=== PATIENT | male | born 1960 | race Caucasian/White ===

== ENCOUNTER 2019-06-13 15:51 | Emergency (ER) | payer OTHER ==
[2019-06-13 16:23] VITALS: TEMP 98
[2019-06-13] MEDS ORDERED: HYDROcodone/APAP 7.5-325MG 1 EACH TAB PO ONE (16:30)
--- NOTE | 2019-06-13 16:49 | XR ---
EXAMINATION TYPE: XR hand complete RT DATE OF EXAM: 06/13/2019 COMPARISON: NONE HISTORY: Pain TECHNIQUE: 3 views FINDINGS: Metacarpals appear intact. Carpal bones are intact. I see no fracture nor dislocation. Ther e is minor spurring at the DIP joints. IMPRESSION: No acute abnormality of the right hand.
--- NOTE | 2019-06-13 16:50 | XR ---
EXAMINATION TYPE: XR wrist complete RT DATE OF EXAM: 06/13/2019 COMPARISON: NONE HISTORY: Wrist pain TECHNIQUE: 4 views FINDINGS: Carpal bones are intact. I see no fracture nor dislocation. Joint spaces are normal. IMPRESSION: Negative right wrist exam.
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
[2019-06-13] MEDS ORDERED: ACET/COD 300 MG/30 MG STARTER PACK 6 TAB BTL PO STA (17:10)
[2019-06-13 17:21] VITALS: BP 130/88; PULSE 80; RESP 16
== END 2019-06-13 17:19 | disposition home or self-care (01) ==
LOC: EC 15:51
DX: S63.501A Unspecified sprain of right wrist, initial encounter (principal); V48.5XXA Car driver injured in noncollision transport accident in traffic accident, initial encounter; Y92.410 Unspecified street and highway as the place of occurrence of the external cause; Y93.89 Activity, other specified
CPT/HCPCS: 29125; 99284

== ENCOUNTER 2021-10-16 12:57 | Observation (INO) | payer BC, OTHER ==
[2021-10-16 13:02] LABS: Glucose,Whole Blood 93 mg/dL (75-99)
[2021-10-16] MEDS ORDERED: SODIUM CHLORIDE 0.9% 1,000 ML IV STA (13:22)
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
[2021-10-16 13:30] LABS: Basophils % (A) 1 %; Eosinophils # (A) 0.1 k/uL (0-0.7); Eosinophils % (A) 1 %; HCT 46.8 % (39.0-53.0); HGB 15.7 gm/dL (13.0-17.5); Lymphocytes # (A) 1.9 k/uL (1.0-4.8); Lymphocytes % (A) 26 %; MCH 30.9 pg (25.0-35.0); MCHC 33.4 g/dL (31.0-37.0); MCV 92.5 fL (80.0-100.0); Mean Platelet Volume 8.2; Monocytes # (A) 0.4 k/uL (0-1.0); Monocytes % (A) 6 %; Neutrophils # (A) 4.7 k/uL (1.3-7.7); Neutrophils % (A) 64 %; Platelet Count 208 k/uL (150-450); RBC 5.06 m/uL (4.30-5.90); RDW 14.2 % (11.5-15.5); WBC 7.2 k/uL (3.8-10.6)
[2021-10-16 13:52] LABS: Calcium 8.9 mg/dL (8.4-10.2); Magnesium 1.6 mg/dL (1.6-2.3)
[2021-10-16 13:56] LABS: Potassium 4.6 mmol/L (3.5-5.1)
[2021-10-16] MEDS ORDERED: NALOXONE 0.4 MG/ML 1 ML VIAL IV PRN (14:52)
[2021-10-16] MEDS: SODIUM CHLORIDE 0.9% 1,000 ML IV SCH (15:55)
[2021-10-16] MEDS: amLODIPine 5 MG TAB PO SCH (18:18)
[2021-10-17] MEDS: LEVOTHYROXINE 112 MCG TAB PO SCH (05:15)
--- NOTE | 2021-10-17 10:03 | US ---
EXAMINATION TYPE: US carotid duplex BILAT DATE OF EXAM: 10/17/2021 COMPARISON: NONE CLINICAL HISTORY: presyncope. Presyncope per order. Previous smoker. Hx bradycardia. EXAM MEASUREMENTS: RIGHT: Peak Systolic Velocity (PSV) cm/sec ----- Right CCA: 53.7 ----- Right ICA: 51.1 *Bulb measurement ----- Right ECA: 77.3 ICA/CCA ratio: 1.0 RIGHT: End Diastole cm/sec ----- Right CCA: 11.9 ----- Right ICA: 10.1 *Bulb measurement ----- Right ECA: 9.2 LEFT: Peak Systolic Velocity (PSV) cm/sec ----- Left CCA: 53.1 ----- Left ICA: 43.1 ----- Left ECA: 79.0 ICA/CCA ratio: 0.8 LEFT: End Diastole cm/sec ----- Left CCA: 11.1 ----- Left ICA: 10.7 ----- Left ECA: 7.5 VERTEBRALS (direction of flow): Right Vertebral: Antegrade Left Vertebral: Antegrade Rhythm: Normal Intimal thickening seen bilaterally. No elevated velocities at this time. Hypoechoic area with hyperechoic center seen right neck: 1.3 x 1.0 x 0.3 cm. Hypoechoic area with hyperechoic center seen left neck: 2.0 x 1.4 x 0.5 cm. Incidental finding- thyroid gland appears heterogeneous bilaterally. IMPRESSION: No evidence for hemodynamically significant stenosis. Criteria for Assigning % of Stenosis / Diameter reduction (Estimation based on the indirect measurements of the internal carotid artery velocities (ICA PSV). 1. Normal (no stenosis)=ICA PSV < 125 cm/s: ratio < 2.0: ICA EDV<40 cm/s. 2. Less than 50% stenosis=ICA PSV < 125 cm/s: ratio < 2.0: ICA EDV<40 cm/s. 3. 50 to 69% stenosis=ICA PSV of 125 to 230 cm/s: ration 2.0 ? 4.0: ICA EDV 40-100 cm/s. 4. Greater than 70% stenosis to near occlusion= ICA PSV > 230 cm/s: ratio > 4.0: ICA EDV > 100 cm/s. 5. Near occlusion= ICA PSV velocities may be low or undetectable: variable ratio and ICA EDV. 6. Total occlusion=unable to detect flow.
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
[2021-10-17] MEDS: FAMOTIDINE 20 MG/2 ML VIAL IV SCH ×2 (11:32→19:59)
[2021-10-17] MEDS: amLODIPine 5 MG TAB PO SCH ×2 (11:32→13:33)
[2021-10-17] MEDS: HEPARIN SODIUM,PORCINE/PF 5,000 UNIT/0.5 ML SYRINGE SQ SCH ×2 (11:32→19:59)
[2021-10-17] MEDS: SODIUM CHLORIDE 0.9% 1,000 ML IV SCH (14:51)
[2021-10-17 15:21] VITALS: PULSE 53
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
[2021-10-18] MEDS: LEVOTHYROXINE 112 MCG TAB PO SCH (05:34)
[2021-10-18] MEDS: HEPARIN SODIUM,PORCINE/PF 5,000 UNIT/0.5 ML SYRINGE SQ SCH (07:49)
[2021-10-18] MEDS: amLODIPine 5 MG TAB PO SCH (07:54)
[2021-10-18 08:19] VITALS: BP 159/83; RESP 18; TEMP 97.9
[2021-10-18] MEDS ORDERED: FAMOTIDINE 20 MG TAB PO SCH (09:00)
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
--- NOTE | 2021-10-22 10:00 | ECHOF ---
Referral Reason:lv function MEASUREMENTS -------- HEIGHT: 167.6 cm WEIGHT: 86.2 kg BP: 159/85 RVIDd: 3.2 cm (< 3.3) IVSd: 1.2 cm (0.6 - 1.1) LVIDd: 5.2 cm (3.9 - 5.3) LVPWd: 1.2 cm (0.6 - 1.1) IVSs: 1.9 cm LVIDs: 3.6 cm LVPWs: 1.8 cm LAESV Index (A-L): 17.81 ml/m Ao Diam: 4.0 cm (2.0 - 3.7) AV Cusp: 1.6 cm (1.5 - 2.6) MV EXCURSION: 12.842 mm (> 18.000) MV EF SLOPE: 59 mm/s (70 - 150) EPSS: 1.0 cm AR PHT: 700 ms RAP: 5.00 mmHg RVSP: 25.57 mmHg FINDINGS -------- Resting bradycardia (HR<60bpm). This was a technically adequate study. The left ventricular size is normal. There is mild concentric left ventricular hypertrophy. Overa ll left ventricular systolic function is normal with, an EF between 55 - 60 %. The right ventricle is normal in size. Normal LA size by volume 22+/-6 ml/m2. The right atrial size is normal. Interatrial and interventricular septum intact. The aortic valve is trileaflet and appears structurally normal. There is [id number]-vl-[id number] aortic re gurgitation. There is no evidence of aortic stenosis. No mitral regurgitation. Trace tricuspid regurgitation present. There is no evidence of pulmonary hypertension. Unable to estimate RVSP due to inadequate TR jet spectral doppler profile. There is no pulmonic regurgitation present. The aortic root and ascending aorta are dilated measuring up to (4.2 ) cm. Echo free space represents a pericardial fat pad. There is no pericardial effusion. CONCLUSIONS -------- 1. The left ventricular size is normal. 2. There is mild concentric left ventricular hypertrophy. 3. Overall left ventricular systolic function is normal with, an EF between 55 - 60 %. 4. There is bjts-bv-nffbzuns aortic regurgitation. 5. Trace tricuspid regurgitation present. 6. The aortic root and ascending aorta are dilated measuring up to (4.2) cm. [employer] FIELD AGENT: Leslie Rosales RDCS
== END 2021-10-18 14:03 | disposition home or self-care (01) ==
LOC: EC 12:57 → 6NMEDSUR 14:54
PROVIDERS: ADMIT Hospitalist; ATTEND Hospitalist
DX: R00.1 Bradycardia, unspecified (principal); I10 Essential (primary) hypertension; I45.2 Bifascicular block; I44.0 Atrioventricular block, first degree; E03.9 Hypothyroidism, unspecified; R22.1 Localized swelling, mass and lump, neck; E66.9 Obesity, unspecified; Z68.30 Body mass index [BMI] 30.0-30.9, adult; Z71.3 Dietary counseling and surveillance; V43.52XA Car driver injured in collision with other type car in traffic accident, initial encounter; Y92.410 Unspecified street and highway as the place of occurrence of the external cause; Z79.890 Hormone replacement therapy; Z87.891 Personal history of nicotine dependence
CPT/HCPCS: 96360; 99285; 36415; 93005; 93306; 93270; 80048; 84443; 83735; 84484; 85025; 93880; G0378 ×3

== ENCOUNTER 2023-06-17 23:14 | Emergency (ER) | payer BC ==
[2023-06-17 23:40] VITALS: RESP 18; TEMP 98.7
[2023-06-17] MEDS ORDERED: SODIUM CHLORIDE 0.9% 1,000 ML IV STA (23:48)
[2023-06-18 00:06] LABS: Basophils % (A) 1 %; Eosinophils # (A) 0.1 k/uL (0-0.7); Eosinophils % (A) 2 %; HCT 44.9 % (39.0-53.0); HGB 14.8 gm/dL (13.0-17.5); Lymphocytes # (A) 2.2 k/uL (1.0-4.8); Lymphocytes % (A) 31 %; MCH 29.3 pg (25.0-35.0); MCHC 32.9 g/dL (31.0-37.0); MCV 89.1 fL (80.0-100.0); Mean Platelet Volume 7.7; Monocytes # (A) 0.3 k/uL (0-1.0); Monocytes % (A) 5 %; Neutrophils # (A) 4.3 k/uL (1.3-7.7); Neutrophils % (A) 60 %; Platelet Count 248 k/uL (150-450); RBC 5.04 m/uL (4.30-5.90); RDW 13.7 % (11.5-15.5); WBC 7.1 k/uL (3.8-10.6)
[2023-06-18 00:11] LABS: INR 0.9 (<1.2); Partial Thromboplastin Time 27.3 sec (22.0-30.0); Prothrombin Time 10.5 sec (10.0-12.5)
--- NOTE | 2023-06-18 01:25 | XR ---
EXAM: XR Chest, 2 Views CLINICAL HISTORY: ITS.REASON XR Reason: dysrhythmia TECHNIQUE: Frontal and lateral views of the chest. COMPARISON: No relevant prior studies available. FINDINGS: Lungs: Unremarkable. No consolidation. Pleural space: Unremarkable. No pneumothorax. Heart: Unremarkable. No cardiomegaly. Mediastinum: Unremarkable. Bones/joints: Unremarkable. Tubes, lines and devices: Left chest wall pacemaker device with leads in the right atrium and right ventricle. IMPRESSION: No acute findings in the chest.
[2023-06-18 01:32] LABS: ALT 22 U/L (4-49); AST 31 U/L (17-59); African American GFR (CKD) 87 (>60 ml/min/1.73 sqM); Albumin 3.9 g/dL (3.5-5.0); Alkaline Phosphatase 52 U/L (38-126); Anion Gap 11 mmol/L; Blood Urea Nitrogen 17 mg/dL (9-20); Calcium 9.6 mg/dL (8.4-10.2); Carbon Dioxide 22 mmol/L (22-30); Chloride 107 mmol/L (98-107); Glucose 102 mg/dL (74-99); Magnesium 1.9 mg/dL (1.6-2.3); Non-African American GFR(CKD) 75 (>60 ml/min/1.73 sqM); Potassium 3.7 mmol/L (3.5-5.1); Sodium 140 mmol/L (137-145); Total Bilirubin 0.3 mg/dL (0.2-1.3); Total Protein 6.4 g/dL (6.3-8.2)
--- NOTE | 2023-06-18 01:40 | ED ---
Arrhythmia/Palpitations HPI - General Chief Complaint: Dizziness Stated Complaint: lightheadedness/flushed Time Seen by Provider: 06/17/23 23:27 Source: patient Mode of arrival: ambulatory Limitations: no limitations - History of Present Illness Initial Comments: 63-year-old male presenting with chief complaint of lightheadedness. 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 He states that he took a short break until his symptoms somewhat improved and resumed work he was doing when his symptoms returned. States that he couldn't feel his face getting red and hot and suspected that his blood press ure was elevated as this is how he has felt the past when his blood pressure was elevated. He states that symptoms have essentially completely resolved. He denies any chest pain, difficulty breathing, palpitations, numbness, tingling, weakness, nausea, vomiting, abdominal pain, vision or hearing changes, headache, neck pain, lower extremity swelling. Patient feels well at this time. Patient does have a pacemaker in place due to left and right bundle-branch block - Related Data Home Medications Medication Instructions Recorded Confirmed Levothyroxine Sodium [Synthroid] 112 mcg PO DAILY 10/16/21 10/16/21 Previous Rx's Medication Instructions Recorded amLODIPine [Norvasc] 5 mg PO DAILY #30 tab 10/18/21 Allergies Allergy/AdvReac Type Severity Reaction Status Date / Time No Known Allergies Allergy Verified 06/17/23 23:19 Review of Systems ROS Statement: Those systems with pertinent positive or pertinent negative responses have been documented in the HPI. ROS Other: All systems not noted in ROS Statement are negative. Past Medical History Past Medical History: Thyroid Disorder History of Any Multi-Drug Resistant Organisms: None Reported Past Surgical History: Hernia Repair, Pacemaker Past Anesthesia/Blood Transfusion Reactions: No Reported Reaction Past Psychological History: No Psychological Hx Reported Smoking Status: Former smoker Past Alcohol Use History: Daily Past Drug Use History: None Reported General Exam Limitations: no limitations General appearance: alert, in no apparent distress Head exam: Present: atraumatic, normocephalic, normal inspection Eye exam: Present: normal appearance, EOMI Neck exam: Present: normal inspection, full ROM Respiratory exam: Present: normal lung sounds bilaterally. Absent: respiratory distress, wheezes, rales, rhonchi, stridor Cardiovascular Exam: Present: regular rate, normal rhythm, normal heart sounds. Absent: systolic murmur, diastolic murmur, rubs, gallop, clicks Extremities exam: Absent: pedal edema Neurological exam: Present: alert, oriented X3 Expanded Patient oriented to: Present: person, place, time Speech: Present: fluid speech Cranial nerves: EOM's Intact: Normal Eye Response: (4) open spontaneously Motor Response: (6) obeys commands Verbal Response: (5) oriented [place] Total: 15 Psychiatric exam: Present: normal affect, normal mood Skin exam: Present: warm, dry, normal color Course Vital Signs 06/17/23 06/17/23 06/18/23 23:17 23:19 00:19 Temperature 98.7 F Pulse Rate 90 73 70 Respiratory 18 18 18 Rate Blood Pressure 141/84 135/74 141/77 O2 Sat by Pulse 95 99 98 Oximetry 06/18/23 01:19 Temperature Pulse Rate 61 Respiratory 18 Rate Blood Pressure 116/67 O2 Sat by Pulse 98 Oximetry Medical Decision Making - Medical Decision Making Electronic ventricular pacemaker. Ventricular rate 80. IA interval 184. QRS 201. QT 458. QTC 493. Was pt. sent in by a medical professional or institution (, PA, [employer], urgent care, hospital, or long term...) When possible be specific @ -No Did you speak to anyone other than the patient for history (EMS, parent, family, police, friend...)? What history was obtained from this source @ -No Did you review nursing and triage notes (agree or disagree)? Why? @ -I reviewed and agree with nursing and triage notes Were old charts reviewed (outside hosp., previous admission, EMS record, old EKG, old radiological studies, urgent care reports/EKG's, long term records)? Report findings @ -No old charts were reviewed Differential Diagnosis (chest pain, altered mental status, abdominal pain women, abdominal pain men, vaginal bleeding, weakness, fever, dyspnea, syncope, heada med, dizziness, GI bleed, back pain, seizure, CVA, palpatations, mental health, musculoskeletal)? @ -MDM Differential Dizziness: Benign paroxysmal positional Vertigo, Menieres disease, otitis media, acoustic neuroma, vertebrobasilar insufficiency, cerebellar stroke, encephali tis, hypovolemic, arrhythmia, coronary artery syndrome, anemia this is not meant to be an all-inclusive list EKG interpreted by me (3pts min.). @ -As above X-rays interpreted by me (1pt min.). @ -Chest x-ray shows no acute process CT interpreted by me (1pt min.). @ -None done U/S interpreted by me (1pt. min.). @ -None done What testing was considered but not performed or refused? (CT, X-rays, U/S, labs)? Why? @ -None What meds were considered but not given or refused? Why? @ -None Did you discuss the management of the patient with other professionals (professionals i.e. DrHeather, PA, [employer], lab, RT, psych nurse, social insurance specialist, core maker helper, teacher, ground intelligence officer, major case detective)? Give summary @ -No Was smoking cessation discussed for >3mins.? @ -No Was critical care preformed (if so, how long)? @ -No Were there social determinants of health that impacted care today? How? (Homelessness, low income, unemployed, alcoholism, drug addiction, transportation, low edu. Level, literacy, decrease access to med. care, custodial, rehab)? @ -No Was there de-escalation of care discussed even if they declined (Discuss DNR or withdrawal of care, Hospice)? DNR status @ -No What co-morbidities impacted this encounter? (DM, HTN, Smoking, COPD, CAD, Cancer, CVA, ARF, Chemo, Hep., AIDS, mental health diagnosis, sleep apnea, morbid obesity)? @ -None Was patient admitted / discharged? Hospital course, mention meds given and route, prescriptions, significant lab abnormalities, going to OR and other pertinent info. @ -63-year-old male presenting with chief complaint of lightheadedness and flushed face after moving heavy barrels at work this evening. Symptoms have since resolved. No chest pain or difficulty breathing. History and physical exam were conducted. Lab work is essentially unremarkable. Negative chest x- ray. The EKG shows electronic ventricular pacemaker. Patient is resting comfortably and symptoms have not returned. Patient would like to be discharged home and I believe this is reasonable. He is educated on today's findings and the need for follow-up with PCP. Follow-up with PCP. Report back to ER with any new or worsening symptoms. Discussed return parameters and answered all questions. Patient conveyed verbal understanding and agreed to the plan. I discussed this case in detail with my attending Dr. Walton Undiagnosed new problem with uncertain prognosis? @ -No Drug Therapy requiring intensive monitoring for toxicity (Heparin, Nitro, Insulin, Cardizem)? @ -No Were any procedures done? @ -No Diagnosis/symptom? @ -lightheadedness Acute, or Chronic, or Acute on Chronic? @ -Acute Uncomplicated (without systemic symptoms) or Complicated (systemic symptoms)? @ -Uncomplicated Side effects of treatment? @ -No Exacerbation, Progression, or Severe Exacerbation? @ -No Poses a threat to life or bodily function? How? (Chest pain, USA, MS, pneumonia, PE, COPD, DKA, ARF, appy, cholecystitis, CVA, Diverticulitis, Homicidal, Suicidal, threat to staff... and all critical care pts) @ -Low Likelihood - Lab Data Result diagrams: 06/17/23 23:51 06/17/23 23:51 Lab Results 06/17/23 06/17/23 06/17/23 Range/Units 23:51 23:51 23:51 WBC 7.1 (3.8-10.6) k/uL RBC 5.04 (4.30-5.90) m/uL Hgb 14.8 (13.0-17.5) gm/dL Hct 44.9 (39.0-53.0) % MCV 89.1 (80.0-100.0) fL MCH 29.3 (25.0-35.0) pg MCHC 32.9 (31.0-37.0) g/dL RDW 13.7 (11.5-15.5) % Plt Count 248 (150-450) k/uL MPV 7.7 Neutrophils % 60 % Lymphocytes % 31 % Monocytes % 5 % Eosinophils % 2 % Basophils % 1 % Neutrophils # 4.3 (1.3-7.7) k/uL Lymphocytes # 2.2 (1.0-4.8) k/uL Monocytes # 0.3 (0-1.0) k/uL Eosinophils # 0.1 (0-0.7) k/uL Basophils # 0.0 (0-0.2) k/uL PT 10.5 (10.0-12.5) sec INR 0.9 (<1.2) APTT 27.3 (22.0-30.0) sec Sodium 140 (137-145) mmol/L Potassium 3.7 (3.5-5.1) mmol/L Chloride 107 (98-107) mmol/L Carbon Dioxide 22 (22-30) mmol/L Anion Gap 11 mmol/L BUN 17 (9-20) mg/dL Creatinine 1.05 (0.66-1.25) mg/dL Est GFR (CKD-EPI)AfAm 87 (>60 ml/min/1.73 sqM) Est GFR (CKD-EPI)NonAf 75 (>60 ml/min/1.73 sqM) Glucose 102 H (74-99) mg/dL Calcium 9.6 (8.4-10.2) mg/dL Magnesium 1.9 (1.6-2.3) mg/dL Total Bilirubin 0.3 (0.2-1.3) mg/dL AST 31 (17-59) U/L ALT 22 (4-49) U/L Alkaline Phosphatase 52 (38-126) U/L Troponin I (0.000-0.034) ng/mL Total Protein 6.4 (6.3-8.2) g/dL Albumin 3.9 (3.5-5.0) g/dL 06/17/23 Range/Units 23:51 WBC (3.8-10.6) k/uL RBC (4.30-5.90) m/uL Hgb (13.0-17.5) gm/dL Hct (39.0-53.0) % MCV (80.0-100.0) fL MCH (25.0-35.0) pg MCHC (31.0-37.0) g/dL RDW (11.5-15.5) % Plt Count (150-450) k/uL MPV Neutrophils % % Lymphocytes % % Monocytes % % Eosinophils % % Basophils % % Neutrophils # (1.3-7.7) k/uL Lymphocytes # (1.0-4.8) k/uL Monocytes # (0-1.0) k/uL Eosinophils # (0-0.7) k/uL Basophils # (0-0.2) k/uL PT (10.0-12.5) sec INR (<1.2) APTT (22.0-30.0) sec Sodium (137-145) mmol/L Potassium (3.5-5.1) mmol/L Chloride (98-107) mmol/L Carbon Dioxide (22-30) mmol/L Anion Gap mmol/L BUN (9-20) mg/dL Creatinine (0.66-1.25) mg/dL Est GFR (CKD-EPI)AfAm (>60 ml/min/1.73 sqM) Est GFR (CKD-EPI)NonAf (>60 ml/min/1.73 sqM) Glucose (74-99) mg/dL Calcium (8.4-10.2) mg/dL Magnesium (1.6-2.3) mg/dL Total Bilirubin (0.2-1.3) mg/dL AST (17-59) U/L ALT (4-49) U/L Alkaline Phosphatase (38-126) U/L Troponin I <0.012 (0.000-0.034) ng/mL Total Protein (6.3-8.2) g/dL Albumin (3.5-5.0) g/dL Disposition Clinical Impression: Lightheadedness Disposition: HOME SELF-CARE Condition: Good Instructions (If sedation given, give patient instructions): Lightheadedness (ED) Additional Instructions: Follow-up with PCP. Report back to ER with any new or worsening symptoms. Is patient prescribed a controlled substance at d/c from ED?: No Referrals: Liz Brewster MD [Primary Care Provider] - 1-2 days Time of Disposition: 01:40
[2023-06-18 01:55] VITALS: BP 116/67; PULSE 61
== END 2023-06-18 01:53 | disposition home or self-care (01) ==
LOC: EC 23:14
DX: R42 Dizziness and giddiness (principal); E07.9 Disorder of thyroid, unspecified; I45.10 Unspecified right bundle-branch block; Z87.891 Personal history of nicotine dependence; Z79.890 Hormone replacement therapy
CPT/HCPCS: 36415; 71046; 80053; 83735; 84484; 85025; 85610; 85730; 93005; 96360; 99284

== ENCOUNTER 2023-09-24 12:57 | Emergency (ER) | payer BC ==
--- NOTE | 2023-09-24 13:14 | ED ---
General Adult HPI - General Source: patient, RN notes reviewed Mode of arrival: ambulatory Limitations: no limitations <Angela Murcia - Last Filed: 09/26/23 06:32> - General Source: RN notes reviewed, old records reviewed Mode of arrival: ambulatory Limitations: no limitations - History of Present Illness -: days(s) Location: chest Radiation: non-radiation Severity scale (1-10): 6 Quality: sharp Consistency: constant Improves with: none, immobilization Associated Symptoms: chest pain Treatments Prior to Arrival: none <Brayan Walton - Last Filed: 10/03/23 18:43> - General Chief complaint: Chest Pain Stated complaint: Cardiac eval Time Seen by Provider: 09/24/23 13:11 - History of Present Illness Initial comments: This is a 63 year old male who presents to the emergency department for chest pain. Chest pain started 5-7 days ago. This is primarily left sided. He believes that he pulled a muscle, however his PCP advised he come to the emergency department for evaluation. Reports a hx of LBBB and he has a pacemaker. (Angela Murcia) This is a 63-year-old male to ER for chest pain 5 to 7 days of chest pain thought it was a pulled muscle but was brought to the ER as his PCP told him to come in for evaluation of chest pain (Brayan Walton) - Related Data Home Medications Medication Instructions Recorded Confirmed Levothyroxine Sodium [Synthroid] 112 mcg PO DAILY 10/16/21 10/16/21 Previous Rx's Medication Instructions Recorded amLODIPine [Norvasc] 5 mg PO DAILY #30 tab 10/18/21 Allergies Allergy/AdvReac Type Severity Reaction Status Date / Time No Known Allergies Allergy Verified 09/24/23 13:16 Review of Systems ROS Other: All systems not noted in ROS Statement are negative. <Angela Murcia - Last Filed: 09/26/23 06:32> ROS Other: All systems not noted in ROS Statement are negative. <Brayan Walton - Last Filed: 10/03/23 18:43> ROS Statement: Those systems with pertinent positive or pertinent negative responses have been documented in the HPI. Past Medical History Past Medical History: Thyroid Disorder History of Any Multi-Drug Resistant Organisms: None Reported Past Surgical History: Hernia Repair, Pacemaker Past Anesthesia/Blood Transfusion Reactions: No Reported Reaction Past Psychological History: No Psychological Hx Reported Smoking Status: Former smoker Past Alcohol Use History: Daily Past Drug Use History: None Reported <Angela Murcia - Last Filed: 09/26/23 06:32> General Exam <Angela Murcia - Last Filed: 09/26/23 06:32> General appearance: alert, in no apparent distress Head exam: Present: atraumatic, normocephalic, normal inspection Eye exam: Present: normal appearance, PERRL, EOMI. Absent: scleral icterus, conjunctival injection, periorbital swelling ENT exam: Present: normal exam, mucous membranes moist Neck exam: Present: normal inspection. Absent: tenderness, meningismus, lymphadenopathy Respiratory exam: Present: normal lung sounds bilaterally. Absent: respiratory distress, wheezes, rales, rhonchi, stridor Cardiovascular Exam: Present: regular rate, normal rhythm, normal heart sounds. Absent: systolic murmur, diastolic murmur, rubs, gallop, clicks GI/Abdominal exam: Present: soft, normal bowel sounds. Absent: distended, t enderness, guarding, rebound, rigid Extremities exam: Present: normal inspection, full ROM, normal capillary refill. Absent: tenderness, pedal edema, joint swelling, calf tenderness Back exam: Present: normal inspection Neurological exam: Present: alert, oriented X3, CN II-XII intact Psychiatric exam: Present: normal affect, normal mood Skin exam: Present: warm, dry, intact, normal color. Absent: rash <Brayan Walton - Last Filed: 10/03/23 18:43> - General Exam Comments Initial Comments: Visual Physical Exam Vital signs reviewed General: Well-appearing, nontoxic, no acute distress. Head: Normocephalic, atraumatic Eyes: PERRLA, EOMI ENT: Airway patent Chest: Nonlabored breathing Skin: No visual rash, normal skin tone Neuro: Alert and oriented 3 Musculoskeletal: No gross abnormalities (Angela Murcia) Course <Brayan Walton - Last Filed: 10/03/23 18:43> Vital Signs 09/24/23 13:13 Temperature 98.4 F Pulse Rate 63 Respiratory 20 Rate Blood Pressure 135/82 O2 Sat by Pulse 98 Oximetry - Reevaluation(s) Reevaluation #1: Medical records reviewed (Brayan Walton) Reevaluation #2: Patient symptoms unchanged (Brayan Walton) Reevaluation #3: Patient informed of results and questions answered (Brayan Walton) Reevaluation #4: Was pt. sent in by a medical professional or institution (, ANNAMARIA, PERSONNEL WORKER, urgent care, hospital, or fdc...) When possible be specific @ -no Did you speak to anyone other than the patient for history (EMS, parent, family, police, friend...)? What history was obtained from this source @ -no Did you review nursing and triage notes (agree or disagree)? Why? @ -agree Are old charts reviewed (outside hosp., previous admission, EMS record, old EKG, old radiological studies, urgent care reports/EKG's, fdc records)? Report findings @ -yes Differential Diagnosis (chest pain, altered mental status, abdominal pain women, abdominal pain men, vaginal bleeding, weakness, fever, dyspnea, syncope, headache, dizziness, GI bleed, back pain, seizure, CVA, palpatations, mental health, musculoskeletal)? @ -prior EKG interpreted by me (3pts min.). @ -yes X-rays interpreted by me (1pt min.). @ -yes negative for acute disease CT interpreted by me (1pt min.). @ -no U/S interpreted by me (1pt. min.). @ -no What testing was considered but not performed or refused? (CT, X-rays, U/S, labs)? Why? @ -none What meds were considered but not given or refused? Why? @ -none Did you discuss the management of the patient with other professionals (professionals i.e. , ANNAMARIA, PERSONNEL WORKER, lab, RT, psych nurse, social insurance administrator, manuscript editor, teacher, military police officer, shoe caser)? Give summary @ -no Was smoking cessation discussed for >3mins.? @ -no Was critical care preformed (if so, how long)? @ -no Were there social determinants of health that impacted care today? How? (Homelessness, low income, unemployed, alcoholism, drug addiction, transportation, low edu. Level, literacy, decrease access to med. care, correction, rehab)? @ -none Was there de-escalation of care discussed even if they declined (Discuss DNR or withdrawal of care, Hospice)? DNR status @ -no What co-morbidities impacted this encounter? (DM, HTN, Smoking, COPD, CAD, Cancer, CVA, ARF, Chemo, Hep., AIDS, mental health diagnosis, sleep apnea, morbid obesity)? @ -none Was patient admitted / discharged? Hospital course, mention meds given and route, prescriptions, significant lab abnormalities, going to OR and other pertinent info. @ - 63 male with nonspecific chest pain. No acute cause of chest pain found here in the ER and can be discharged home Discharge Undiagnosed new problem with uncertain prognosis? @ -no Drug Therapy requiring intensive monitoring for toxicity (Heparin, Nitro, Insu sara, Cardizem)? @ -no Were any procedures done? @ -no Diagnosis/symptom? @ -Chest pain Acute, or Chronic, or Acute on Chronic? @ -Acute Uncomplicated (without systemic symptoms) or Complicated (systemic symptoms)? @ -Complicated Side effects of treatment? @ -no Exacerbation, Progression, or Severe Exacerbation? @ -exacerbation Poses a threat to life or bodily function? How? (Chest pain, [place], [place], pneumonia, PE, COPD, DKA, ARF, appy, cholecystitis, CVA, Diverticulitis, Homicidal, Suicidal, threat to staff... and all critical care pts) @ -yes with acute chest pain (Brayan Walton) Reevaluation #5: Differential Chest Pain: Stable Angina, Unstable Angina, STEMI, NSTEMI Aortic Dissection, Pneumothorax, Musculoskeletal, Esophageal Spasm GERD, Cholecystitis, Pancreatitis, Zoster, this is not meant to be an all-inclusive list. (Brayan Walton) EKG Findings - EKG Comments: EKG Findings:: EKG is paced 60 [address] 172 QRS 181 QTc 363 - EKG Results: EKG: interpreted by ERMD <Brayan Walton - Last Filed: 10/03/23 18:43> Medical Decision Making - Lab Data Result diagrams: 09/24/23 14:15 09/24/23 14:15 <Angela Murcia - Last Filed: 09/26/23 06:32> - Lab Data Result diagrams: 09/24/23 14:15 09/24/23 14:15 - EKG Data -: EKG Interpreted by Me - Radiology Data Radiology results: report reviewed, image reviewed <Brayan Walton - Last Filed: 10/03/23 18:43> - Medical Decision Making I performed the QuickNote portion of this chart. Signed Angela Murcia PA-C. (Angela Murcia) 63 male with nonspecific chest pain. No acute cause of chest pain found here in the ER and can be discharged home (Brayan Walton) - Lab Data Lab Results 09/24/23 09/24/23 09/24/23 Range/Units 14:15 14:15 14:15 WBC 4.6 (3.8-10.6) k/uL RBC 5.14 (4.30-5.90) m/uL Hgb 15.3 (13.0-17.5) gm/dL Hct 46.4 (39.0-53.0) % MCV 90.3 (80.0-100.0) fL MCH 29.8 (25.0-35.0) pg MCHC 33.0 (31.0-37.0) g/dL RDW 14.4 (11.5-15.5) % Plt Count 208 (150-450) k/uL MPV 7.9 Neutrophils % 57 % Lymphocytes % 32 % Monocytes % 5 % Eosinophils % 3 % Basophils % 1 % Neutrophils # 2.6 (1.3-7.7) k/uL Lymphocytes # 1.5 (1.0-4.8) k/uL Monocytes # 0.2 (0-1.0) k/uL Eosinophils # 0.2 (0-0.7) k/uL Basophils # 0.0 (0-0.2) k/uL PT 10.3 (10.0-12.5) sec INR 0.9 (<1.2) APTT 26.6 (22.0-30.0) sec Sodium 140 (137-145) mmol/L Potassium 4.4 (3.5-5.1) mmol/L Chloride 109 H (98-107) mmol/L Carbon Dioxide 25 (22-30) mmol/L Anion Gap 6 mmol/L BUN 14 (9-20) mg/dL Creatinine 0.86 (0.66-1.25) mg/dL Est GFR (CKD-EPI)AfAm >90 (>60 ml/min/1.73 sqM) Est GFR (CKD-EPI)NonAf >90 (>60 ml/min/1.73 sqM) Glucose 96 (74-99) mg/dL Calcium 9.3 (8.4-10.2) mg/dL Magnesium 2.2 (1.6-2.3) mg/dL Total Bilirubin 0.5 (0.2-1.3) mg/dL AST 37 (17-59) U/L ALT 30 (4-49) U/L Alkaline Phosphatase 61 (38-126) U/L Troponin I (0.000-0.034) ng/mL Total Protein 6.7 (6.3-8.2) g/dL Albumin 4.3 (3.5-5.0) g/dL 09/24/23 Range/Units 14:15 WBC (3.8-10.6) k/uL RBC (4.30-5.90) m/uL Hgb (13.0-17.5) gm/dL Hct (39.0-53.0) % MCV (80.0-100.0) fL MCH (25.0-35.0) pg MCHC (31.0-37.0) g/dL RDW (11.5-15.5) % Plt Count (150-450) k/uL MPV Neutrophils % % Lymphocytes % % Monocytes % % Eosinophils % % Basophils % % Neutrophils # (1.3-7.7) k/uL Lymphocytes # (1.0-4.8) k/uL Monocytes # (0-1.0) k/uL Eosinophils # (0-0.7) k/uL Basophils # (0-0.2) k/uL PT (10.0-12.5) sec INR (<1.2) APTT (22.0-30.0) sec Sodium (137-145) mmol/L Potassium (3.5-5.1) mmol/L Chloride (98-107) mmol/L Carbon Dioxide (22-30) mmol/L Anion Gap mmol/L BUN (9-20) mg/dL Creatinine (0.66-1.25) mg/dL Est GFR (CKD-EPI)AfAm (>60 ml/min/1.73 sqM) Est GFR (CKD-EPI)NonAf (>60 ml/min/1.73 sqM) Glucose (74-99) mg/dL Calcium (8.4-10.2) mg/dL Magnesium (1.6-2.3) mg/dL Total Bilirubin (0.2-1.3) mg/dL AST (17-59) U/L ALT (4-49) U/L Alkaline Phosphatase (38-126) U/L Troponin I <0.012 (0.000-0.034) ng/mL Total Protein (6.3-8.2) g/dL Albumin (3.5-5.0) g/dL Disposition Is patient prescribed a controlled substance at d/c from ED?: No <Angela Murcia - Last Filed: 09/26/23 06:32> Is patient prescribed a controlled substance at d/c from ED?: No Time of Disposition: 15:50 <Brayan Walton - Last Filed: 10/03/23 18:43> Clinical Impression: Chest pain, Atypical chest pain Disposition: HOME SELF-CARE Condition: Good Instructions (If sedation given, give patient instructions): Chest Pain (ED), Costochondritis (ED) Referrals: Liz Brewster MD [Primary Care Provider] - 1-2 days
[2023-09-24 13:33] VITALS: BP 135/82; PULSE 63; RESP 20; TEMP 98.4
--- NOTE | 2023-09-24 13:34 | XR ---
EXAMINATION TYPE: XR chest 2V DATE OF EXAM: 09/24/2023 COMPARISON: 06/17/2023. HISTORY: Chest pain. TECHNIQUE: Frontal and lateral views of the chest are obtained. FINDINGS: There is no focal air space opacity, pleural effusion, or pneumothorax seen. The cardiac silhouette size is within normal limits. The osseous structures are intact. Left-sided 2-lead pacem steve is unchanged. IMPRESSION: No acute cardiopulmonary process.
[2023-09-24 14:30] LABS: Basophils % (A) 1 %; Eosinophils # (A) 0.2 k/uL (0-0.7); Eosinophils % (A) 3 %; HCT 46.4 % (39.0-53.0); HGB 15.3 gm/dL (13.0-17.5); Lymphocytes # (A) 1.5 k/uL (1.0-4.8); Lymphocytes % (A) 32 %; MCH 29.8 pg (25.0-35.0); MCV 90.3 fL (80.0-100.0); Mean Platelet Volume 7.9; Monocytes # (A) 0.2 k/uL (0-1.0); Monocytes % (A) 5 %; Neutrophils # (A) 2.6 k/uL (1.3-7.7); Neutrophils % (A) 57 %; Platelet Count 208 k/uL (150-450); RBC 5.14 m/uL (4.30-5.90); RDW 14.4 % (11.5-15.5); WBC 4.6 k/uL (3.8-10.6)
[2023-09-24 14:40] LABS: INR 0.9 (<1.2); Partial Thromboplastin Time 26.6 sec (22.0-30.0); Prothrombin Time 10.3 sec (10.0-12.5)
[2023-09-24 14:56] LABS: ALT 30 U/L (4-49); AST 37 U/L (17-59); African American GFR (CKD) >90 (>60 ml/min/1.73 sqM); Albumin 4.3 g/dL (3.5-5.0); Alkaline Phosphatase 61 U/L (38-126); Anion Gap 6 mmol/L; Blood Urea Nitrogen 14 mg/dL (9-20); Calcium 9.3 mg/dL (8.4-10.2); Carbon Dioxide 25 mmol/L (22-30); Chloride 109 mmol/L (98-107); Glucose 96 mg/dL (74-99); Magnesium 2.2 mg/dL (1.6-2.3); Non-African American GFR(CKD) >90 (>60 ml/min/1.73 sqM); Potassium 4.4 mmol/L (3.5-5.1); Sodium 140 mmol/L (137-145); Total Bilirubin 0.5 mg/dL (0.2-1.3); Total Protein 6.7 g/dL (6.3-8.2)
== END 2023-09-24 16:19 | disposition home or self-care (01) ==
LOC: EC 12:57
DX: R07.89 Other chest pain (principal); E07.9 Disorder of thyroid, unspecified; Z79.890 Hormone replacement therapy; Z87.891 Personal history of nicotine dependence; Z95.0 Presence of cardiac pacemaker
CPT/HCPCS: 36415; 71046; 80053; 83735; 84484; 85025; 85610; 85730; 93005; 99285

== ENCOUNTER → 2023-10-01 | Outpatient (CLI) | payer BC ==
--- NOTE | 2023-10-01 12:59 | CT ---
EXAMINATION TYPE: CT angio chest DATE OF EXAM: 10/01/2023 12:48 PM COMPARISON: None HISTORY: thoracic aneurysm CT DLP: 781.6 mGycm Automated exposure control for dose reduction was used. CONTRAST: CTA scan of the thorax is performed without and with IV Contrast, patient injected with 100 mL of Iso gail 370, pulmonary embolism protocol. 3-D postprocessing was performed. FINDINGS: There are 2-3 tiny 1 to 2 mm subpleural parenchymal nodules in the left lung. No suspicious lung mass or nodule is seen. There is no abnormal airspace/consolidative density or abnormal interstitial density. There is no pleural effusion, pleural thickening or pneumothorax. There is marked aneurysmal dilatati on of the ascending thoracic aorta. The aortic root measures 5.4 cm. The ascending thoracic aorta is 5.1 x 5.3 cm in size. There is no mediastinal, hilar or axillary adenopathy. Limited scanning through the upper abdomen reveals no gross abnormality. The osseous structures are intact. IMPRESSION: 1. Marked aneurysmal dilatation of ascending thoracic aorta as described above. 2. Few scattered tiny 1 to 2 mm subpleural parenchymal nodules in the left lung. BI-RADS Category 2. Benign. This is a risk patient for routine screening at yearly intervals recommended. 3. No acute cardiopulmonary disease.
== END | disposition home or self-care (01) ==
LOC: RADCTMAIN 12:07
PROVIDERS: ATTEND Internal Medicine Clinical Cardiac Electrophysiology
DX: I71.21 Aneurysm of the ascending aorta, without rupture (principal); R91.8 Other nonspecific abnormal finding of lung field
CPT/HCPCS: 71275; Q9967

== ENCOUNTER 2023-10-22 09:53 | Emergency (ER) | payer BC ==
--- NOTE | 2023-10-22 10:02 | ED ---
Male Urogenital HPI - General Chief complaint: Urogenital Stated complaint: Blader obstruction Time Seen by Provider: 10/22/23 10:01 Source: patient, RN notes reviewed Mode of arrival: ambulatory Limitations: no limitations - History of Present Illness Initial comments: 63-year-old male presents emergency department chief complaint being unable to void. 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 States that his last time he was able to incompletely void was at 4 AM this morning. Patient denies any chest pain, headaches, palpitations, fevers, diarrhea, constipation. He endorses suprapubic tenderness. Patient denies history of kidney stones or urinary tract infections, before this event he denies hematuria, dysuria. Reports history of enlarged prostate and sits with urology every 6 months with his last appointment in May 2023, denies previous prosta te surgery. - Related Data Home Medications Medication Instructions Recorded Confirmed Levothyroxine Sodium [Synthroid] 112 mcg PO DAILY 10/16/21 10/16/21 Previous Rx's Medication Instructions Recorded amLODIPine [Norvasc] 5 mg PO DAILY #30 tab 10/18/21 Allergies Allergy/AdvReac Type Severity Reaction Status Date / Time No Known Allergies Allergy Verified 10/22/23 10:00 Review of Systems ROS Statement: Those systems with pertinent positive or pertinent negative responses have been documented in the HPI. ROS Other: All systems not noted in ROS Statement are negative. Past Medical History Past Medical History: Thyroid Disorder History of Any Multi-Drug Resistant Organisms: None Reported Past Surgical History: Hernia Repair, Pacemaker Past Anesthesia/Blood Transfusion Reactions: No Reported Reaction Past Psychological History: No Psychological Hx Reported Smoking Status: Former smoker Past Alcohol Use History: Daily Past Drug Use History: None Reported General Exam Limitations: no limitations General appearance: alert, in no apparent distress Head exam: Present: atraumatic, normocephalic, normal inspection Eye exam: Present: normal appearance, PERRL, EOMI. Absent: scleral icterus, conjunctival injection, periorbital swelling ENT exam: Present: normal exam, mucous membranes moist Neck exam: Present: normal inspection. Absent: tenderness, meningismus, lymphadenopathy Respiratory exam: Present: normal lung sounds bilaterally. Absent: respiratory distress, wheezes, rales, rhonchi, stridor Cardiovascular Exam: Present: regular rate, normal rhythm, normal heart sounds. Absent: systolic murmur, diastolic murmur, rubs, gallop, clicks GI/Abdominal exam: Present: distended (suprapubic), tenderness (suprabupic), normal bowel sounds. Absent: rebound, rigid exam: Absent: testicular tenderness, urethral discharge Extremities exam: Present: normal inspection, full ROM, normal capillary refill. Absent: tenderness, pedal edema, joint swelling, calf tenderness Back exam: Present: normal inspection Neurological exam: Present: alert, oriented X3, CN II-XII intact Psychiatric exam: Present: normal affect, normal mood Skin exam: Present: warm, dry, intact, normal color. Absent: rash Course Vital Signs 10/22/23 09:55 Temperature 97.4 F L Pulse Rate 62 Respiratory 22 Rate Blood Pressure 144/83 O2 Sat by Pulse 100 Oximetry - Reevaluation(s) Reevaluation #1: Evaluated post straight catheterization, patient's symptoms have markedly improved and pain has subsided. 10/22/23 10:47 Medical Decision Making - Medical Decision Making Was pt. sent in by a medical professional or institution (, PA, GERIATRIC ASSISTANT, urgent care, hospital, or [facility]...) When possible be specific @ -No Did you speak to anyone other than the patient for history (EMS, parent, family, police, friend...)? What history was obtained from this source @ -No Did you review nursing and triage notes (agree or disagree)? Why? @ -I reviewed and agree with nursing and triage notes Were old charts reviewed (outside hosp., previous admission, EMS record, old EKG, old radiological studies, urgent care reports/EKG's, [facility] records)? Report findings @ -No old charts were reviewed Differential Diagnosis (chest pain, altered mental status, abdominal pain women, abdominal pain men, vaginal bleeding, weakness, fever, dyspnea, syncope, headache, dizziness, GI bleed, back pain, seizure, CVA, palpatations, mental health, musculoskeletal)? @ -Differential Abdominal Pain Men: Appendicitis, cholecystitis, diverticulosis, ischemic bowel, pancreatitis, hepatitis, UTI, gastroenteritis, AAA, incarcerated hernia, bowel obstruction, constipation, inflammatory bowel, hepatitis, peptic ulcer disease, splenic infarction, perforated viscus, testicular torsion, this is not meant to be an all-inclusive list EKG interpreted by me (3pts min.). @ -None X-rays interpreted by me (1pt min.). @ -None done CT interpreted by me (1pt min.). @ -CT abdomen pelvis without contrast reveals markeldy enlarged prostate, no evidence of hydronephrosis or nephrolithiasis. U/S interpreted by me (1pt. min.). @ -None done What testing was considered but not performed or refused? (CT, X-rays, U/S, labs)? Why? @ -None What meds were considered but not given or refused? Why? @ -None Did you discuss the management of the patient with other professionals (professionals i.e. DrHeather, PA, GERIATRIC ASSISTANT, lab, RT, psych nurse, social sciences instructor, rn case management, teacher, corporate ethics officer, sample case porter)? Give summary @ -No Was smoking cessation discussed for >3mins.? @ -No Was critical care preformed (if so, how long)? @ -No Were there social determinants of health that impacted care today? How? (Homelessness, low income, unemployed, alcoholism, drug addiction, transportation, low edu. Level, literacy, decrease access to med. care, retirement, rehab)? @ -No Was there de-escalation of care discussed even if they declined (Discuss DNR or withdrawal of care, Hospice)? DNR status @ -No What co-morbidities impacted this encounter? (DM, HTN, Smoking, COPD, CAD, Cancer, CVA, ARF, Chemo, Hep., AIDS, mental health diagnosis, sleep apnea, morbid obesity)? @ -None Was patient admitted / discharged? Hospital course, mention meds given and route, prescriptions, significant lab abnormalities, going to OR and other perti nent info. @ -63-year-old male with chief complaint of inability to void. Urinalysis remarkable for moderate blood and >182 red blood cells. No evidence of leukocytosis or thrombocytopenia. CT abdomen pelvis without contrast reveals markeldy enlarged prostate, no evidence of hydronephrosis or nephrolithiasis. Discussed case with attending Dr. Barlow, patient to be sent home with indwelling catheter and follow-up with urology next week for further intervention. Undiagnosed new problem with uncertain prognosis? @ -No Drug Therapy requiring intensive monitoring for toxicity (Heparin, Nitro, Ins ulin, Cardizem)? @ -No Were any procedures done? @ -No Diagnosis/symptom? @ -Urinary retention Acute, or Chronic, or Acute on Chronic? @ -Acute Uncomplicated (without systemic symptoms) or Complicated (systemic symptoms)? @ -Uncomplicated Side effects of treatment? @ -No Exacerbation, Progression, or Severe Exacerbation? @ -No Poses a threat to life or bodily function? How? (Chest pain, [place], [place], pneumonia, PE, COPD, DKA, ARF, appy, cholecystitis, CVA, Diverticulitis, Homicidal, Suicidal, threat to staff... and all critical care pts) @ -No - Lab Data Result diagrams: 10/22/23 10:27 10/22/23 10:27 Lab Results 10/22/23 10/22/23 10/22/23 Range/Units 10:27 10: 10:27 WBC 7.3 (3.8-10.6) k/uL RBC 4.99 (4.30-5.90) m/uL Hgb 15.2 (13.0-17.5) gm/dL Hct 44.6 (39.0-53.0) % MCV 89.4 (80.0-100.0) fL MCH 30.4 (25.0-35.0) pg MCHC 34.0 (31.0-37.0) g/dL RDW 14.3 (11.5-15.5) % Plt Count 225 (150-450) k/uL MPV 7.7 Neutrophils % 84 % Lymphocytes % 10 % Monocytes % 4 % Eosinophils % 1 % Basophils % 0 % Neutrophils # 6.2 (1.3-7.7) k/uL Lymphocytes # 0.7 L (1.0-4.8) k/uL Monocytes # 0.3 (0-1.0) k/uL Eosinophils # 0.1 (0-0.7) k/uL Basophils # 0.0 (0-0.2) k/uL Sodium 134 L (137-145) mmol/L Potassium 4.3 (3.5-5.1) mmol/L Chloride 106 (98-107) mmol/L Carbon Dioxide 19 L (22-30) mmol/L Anion Gap 9 mmol/L BUN 16 (9-20) mg/dL Creatinine 0.85 (0.66-1.25) mg/dL Est GFR (CKD-EPI)AfAm >90 (>60 ml/min/1.73 sqM) Est GFR (CKD-EPI)NonAf >90 (>60 ml/min/1.73 sqM) Glucose 112 H (74-99) mg/dL Calcium 9.4 (8.4-10.2) mg/dL Total Bilirubin 0.8 (0.2-1.3) mg/dL AST 31 (17-59) U/L ALT 24 (4-49) U/L Alkaline Phosphatase 52 (38-126) U/L Total Protein 6.6 (6.3-8.2) g/dL Albumin 4.2 (3.5-5.0) g/dL Urine Color Colorless Urine Appearance Clear (Clear) Urine pH 6.5 (5.0-8.0) Ur Specific [place] 1.007 (1.001-1.035) Urine Protein Negative (Negative) Urine Glucose (UA) Negative (Negative) Urine Ketones Negative (Negative) Urine Blood Moderate H (Negative) Urine Nitrite Negative (Negative) Urine Bilirubin Negative (Negative) Urine Urobilinogen <2.0 (<2.0) mg/dL Ur Leukocyte Esterase Negative (Negative) Urine RBC >182 H (0-5) /hpf Urine Bacteria Rare H (None) /hpf Disposition Clinical Impression: Urinary retention Narrative: Please return to the Emergency Department if symptoms worsen or any other concerns. Patient to follow-up with urology over the next week for further intervention. Disposition: HOME SELF-CARE Condition: Good Instructions (If sedation given, give patient instructions): Urinary Retention in Men (ED) Is patient prescribed a controlled substance at d/c from ED?: No Referrals: Liz Brewster MD [Primary Care Provider] - 1-2 days Figueroa Dominguez MD [STAFF PHYSICIAN] - 1-2 days Time of Disposition: 11:00
[2023-10-22 10:30] VITALS: TEMP 97.4
[2023-10-22 10:38] LABS: Appearance,Urine Clear (Clear); Bacteria,Urine Rare /hpf; Bilirubin,Urine Negative (Negative); Blood,Urine Moderate (Negative); Color,Urine Colorless; Glucose,Urine (UA) Negative (Negative); Ketones,Urine Negative (Negative); Leukocyte Esterase,Urine Negative (Negative); Nitrite,Urine Negative (Negative); PH, Urine 6.5 (5.0-8.0); Protein,Urine Negative (Negative); RBC,Urine >182 /hpf (0-5); Specific Gravity,Urine 1.007 (1.001-1.035); Urobilinogen,Urine <2.0 mg/dL (<2.0)
[2023-10-22 10:45] LABS: Basophils % (A) 0 %; Eosinophils # (A) 0.1 k/uL (0-0.7); Eosinophils % (A) 1 %; HCT 44.6 % (39.0-53.0); HGB 15.2 gm/dL (13.0-17.5); Lymphocytes # (A) 0.7 k/uL (1.0-4.8); Lymphocytes % (A) 10 %; MCH 30.4 pg (25.0-35.0); MCV 89.4 fL (80.0-100.0); Mean Platelet Volume 7.7; Monocytes # (A) 0.3 k/uL (0-1.0); Monocytes % (A) 4 %; Neutrophils # (A) 6.2 k/uL (1.3-7.7); Neutrophils % (A) 84 %; Platelet Count 225 k/uL (150-450); RBC 4.99 m/uL (4.30-5.90); RDW 14.3 % (11.5-15.5); WBC 7.3 k/uL (3.8-10.6)
[2023-10-22 10:56] LABS: ALT 24 U/L (4-49); AST 31 U/L (17-59); African American GFR (CKD) >90 (>60 ml/min/1.73 sqM); Albumin 4.2 g/dL (3.5-5.0); Alkaline Phosphatase 52 U/L (38-126); Anion Gap 9 mmol/L; Blood Urea Nitrogen 16 mg/dL (9-20); Calcium 9.4 mg/dL (8.4-10.2); Carbon Dioxide 19 mmol/L (22-30); Chloride 106 mmol/L (98-107); Glucose 112 mg/dL (74-99); Non-African American GFR(CKD) >90 (>60 ml/min/1.73 sqM); Potassium 4.3 mmol/L (3.5-5.1); Sodium 134 mmol/L (137-145); Total Bilirubin 0.8 mg/dL (0.2-1.3); Total Protein 6.6 g/dL (6.3-8.2)
--- NOTE | 2023-10-22 10:56 | CT ---
EXAMINATION: CT ABDOMEN AND PELVIS WITHOUT IV CONTRAST DATE OF EXAMINATION: 10/22/2023. COMPARISON: None available. INDICATION: Urinary retention. PROCEDURE: Axial CT of the abdomen and pelvis was performed with sagittal and coronal reformatted i mages without contrast enhancement. The exam is limited because some types of pathology may not be ad equately demonstrated due to lack of contrast enhancement. CT dose lowering techniques were used, to include: automated exposure control, adjustment for patient size, and/or use of iterative reconstruct ion. FINDINGS: LOWER CHEST : The visualized lung bases are clear. There are no pleural or pericardial effusions. ABDOMEN: Liver and Biliary system: Normal. Adrenal glands: Normal. Kidneys and ureters: There is a 3.3 cm simple cyst in the interpolar region of the left kidney.. Spleen: Normal. Pancreas: Normal. Gallbladder: Normal. Lymph nodes, Peritoneum and mesentery: There is no mesenteric or retroperitoneal lymphadenopathy. Gastrointestinal tract: There are no dilated loops of bowel or free intraperitoneal air. . The appe ndix is normal. Aorta/IVC: There is significant vascular calcification throughout the abdominal aorta without evide nce of aneurysmal dilation. IVC normal. Abdominal wall: Normal. PELVIS: Fluid: There is no free fluid in the pelvis. Lymph Nodes: There is no pelvic or inguinal lymphadenopathy.. Urinary bladder: Normal. BONES: There are no osseous destructive lesions.. ADDITIONAL SIGNIFICANT FINDINGS: The prostate is markedly enlarged. IMPRESSION: 1. No renal stones or hydronephrosis.. 2. No bowel obstruction or appendicitis. 3. Marked prostatomegaly.
[2023-10-22] MEDS: KETOROLAC 15 MG/ML 1 ML VIAL IVP STA (11:11)
[2023-10-22 11:55] VITALS: BP 132/98; PULSE 64; RESP 16
== END 2023-10-22 11:45 | disposition home or self-care (01) ==
LOC: EC 09:53
DX: R33.9 Retention of urine, unspecified (principal); E07.9 Disorder of thyroid, unspecified; Z87.891 Personal history of nicotine dependence; Z79.890 Hormone replacement therapy
CPT/HCPCS: 36415; 80053; 85025; 81001; 74176; 96374; 99284; J1885

== ENCOUNTER 2023-10-22 18:58 | Emergency (ER) | payer BC ==
[2023-10-22 19:22] VITALS: RESP 18; TEMP 98
--- NOTE | 2023-10-22 19:23 | ED ---
Male Urogenital HPI - General Chief complaint: Urogenital Stated complaint: problem with Urination Time Seen by Provider: 10/22/23 19:12 Source: patient Mode of arrival: ambulatory Limitations: no limitations - History of Present Illness Initial comments: This patient is 63-year-old man who states that he has been having problems with prostatic enlargement, and has not been able to pass urine since earlier today when he had straight catheterization. The patient had come to the emergency department for suprapubic pressure type pain. He was found to have urinary retention and had a straight cath then reportedly had 1100 cc of urine out. The patient went home with cath kit and states that he and his were not able to pass this at home. He is not able to pass urine. He has similar suprapubic pressure discomfort. No fever or chills. No flank pains. Patient sees Dr. Dominguez. Complaint: other -: hour(s) Location: abdomen Radiation: none Severity: moderate Quality: other (Pressure) Consistency: constant Improves with: none Worsens with: palpation Reports: denies other symptoms - Related Data Home Medications Medication Instructions Recorded Confirmed Levothyroxine Sodium [Synthroid] 112 mcg PO DAILY 10/16/21 10/22/23 Aspirin EC [Ecotrin Low Dose] 81 mg PO DAILY 10/22/23 10/22/23 Loratadine [Claritin] 10 mg PO DAILY 10/22/23 10/22/23 Pravastatin Sodium [Pravachol] 20 mg PO HS 10/22/23 10/22/23 Tamulosin 0.4 mg PO HS 10/22/23 10/22/23 allopurinoL [Zyloprim] 100 mg PO DAILY 10/22/23 10/22/23 carvediloL [Coreg] 3.125 mg PO BID 10/22/23 10/22/23 lisinopriL [Zestril] 5 mg PO DAILY 10/22/23 10/22/23 Allergies Allergy/AdvReac Type Severity Reaction Status Date / Time No Known Allergies Allergy Verified 10/22/23 19:02 Review of Systems ROS Statement: Those systems with pertinent positive or pertinent negative responses have been documented in the HPI. ROS Other: All systems not noted in ROS Statement are negative. Constitutional: Denies: fever, chills Respiratory: Denies: cough, dyspnea Cardiovascular: Denies: chest pain, palpitations, edema Gastrointestinal: Reports: as per HPI, abdominal pain. Denies: vomiting, diarrhea, constipation Genitourinary: Reports: as per HPI, other (Retention). Denies: testicular pain, testicular mass Musculoskeletal: Denies: back pain Skin: Denies: rash Past Medical History Past Medical History: Thyroid Disorder History of Any Multi-Drug Resistant Organisms: None Reported Past Surgical History: Hernia Repair, Pacemaker Past Anesthesia/Blood Transfusion Reactions: No Reported Reaction Past Psychological History: No Psychological Hx Reported Past Alcohol Use History: Daily General Exam Limitations: no limitations General appearance: alert, in no apparent distress Head exam: Present: atraumatic, normocephalic Respiratory exam: Present: normal lung sounds bilaterally. Absent: respiratory distress, wheezes, rales, rhonchi, stridor Cardiovascular Exam: Present: regular rate, normal rhythm, normal heart sounds. Absent: systolic murmur, diastolic murmur, rubs, gallop GI/Abdominal exam: Present: soft, guarding (Prepubic). Absent: distended, tenderness, rebound, rigid, mass, pulsatile mass, hernia Extremities exam: Present: normal inspection, normal capillary refill. Absent: pedal edema, calf tenderness Back exam: Present: normal inspection. Absent: CVA tenderness (R), CVA tenderness (L) Neurological exam: Present: alert Skin exam: Present: warm, dry, intact, normal color. Absent: rash Course Vital Signs 10/22/23 10/22/23 18:59 21:47 Temperature 98 F Pulse Rate 62 60 Respiratory 18 18 Rate Blood Pressure 157/89 135/69 O2 Sat by Pulse 100 96 Oximetry Medical Decision Making - Medical Decision Making Was pt. sent in by a medical professional or institution (, PA, MULTIPLE PUNCH PRESS OPERATOR, urgent care, hospital, or long-term...) When possible be specific @ -[No] Did you speak to anyone other than the patient for history (EMS, parent, family, police, friend...)? What history was obtained from this source @ -[No] Did you review nursing and triage notes (agree or disagree)? Why? @ -[I reviewed and agree with nursing and triage notes] Were old charts reviewed (outside hosp., previous admission, EMS record, old EKG, old radiological studies, urgent care reports/EKG's, long-term records)? Report findings @ -[Previous visit was reviewed Differential Diagnosis (chest pain, altered mental status, abdominal pain women, abdominal pain men, vaginal bleeding, weakness, fever, dyspnea, syncope, headache, dizziness, GI bleed, back pain, seizure, CVA, palpatations, mental health, musculoskeletal)? @ -[Differential Abdominal Pain Men: Appendicitis, cholecystitis, diverticulosis, ischemic bowel, pancreatitis, hepatitis, UTI, gastroenteritis, AAA, incarcerated hernia, bowel obstruction, constipation, inflammatory bowel, hepatitis, peptic ulcer disease, splenic infarction, perforated viscus, testicular torsion, this is not meant to be an all-inclusive list EKG interpreted by me (3pts min.). @ -[As above] X-rays interpreted by me (1pt min.). @ -[None done] CT interpreted by me (1pt min.). @ -[None done] U/S interpreted by me (1pt. min.). @ -[None done] What testing was considered but not performed or refused? (CT, X-rays, U/S, labs)? Why? @ -[None] What meds were considered but not given or refused? Why? @ -[None] Did you discuss the management of the patient with other professionals (professionals i.e. , PA, MULTIPLE PUNCH PRESS OPERATOR, lab, RT, psych nurse, social services analyst, industrial design engineer, teacher, hydrological technical officer, classification case manager)? Give summary @ -[No] Was smoking cessation discussed for >3mins.? @ -[No] Was critical care preformed (if so, how long)? @ -[No] Were there social determinants of health that impacted care today? How? (Homelessness, low income, unemployed, alcoholism, drug addiction, transportation, low edu. Level, literacy, decrease access to med. care, prison, rehab)? @ -[No] Was there de-escalation of care discussed even if they declined (Discuss DNR or withdrawal of care, Hospice)? DNR status @ -[No] What co-morbidities impacted this encounter? (DM, HTN, Smoking, COPD, CAD, Cancer, CVA, ARF, Chemo, Hep., AIDS, mental health diagnosis, sleep apnea, morbid obesity)? @ -[None] Was patient admitted / discharged? Hospital course, mention meds given and route, prescriptions, significant lab abnormalities, going to OR and other pertinent info. @ -[The patient had Maravilla catheter placed and adequate drainage of urine. He was feeling better following Maravilla catheter placement and analgesic. We discussed the appropriate follow-up with urology, as well as return parameters Undiagnosed new problem with uncertain prognosis? @ -[No] Drug Therapy requiring intensive monitoring for toxicity (Heparin, Nitro, Insulin, Cardizem)? @ -[No] Were any procedures done? @ -[Patient had Maravilla catheter placement by nursing staff Diagnosis/symptom? @ -[Recurrent urinary retention with abdominal pain Acute, or Chronic, or Acute on Chronic? @ -[Acute Uncomplicated (without systemic symptoms) or Complicated (systemic symptoms)? @ -[Uncomplicated Side effects of treatment? @ -[No] Exacerbation, Progression, or Severe Exacerbation? @ -[No] Poses a threat to life or bodily function? How? (Chest pain, [place], [place], pneumonia, PE, COPD, DKA, ARF, appy, cholecystitis, CVA, Diverticulitis, Homicidal, Suicidal, threat to staff... and all critical care pts) @ -[No] Disposition Clinical Impression: Urinary retention Disposition: HOME SELF-CARE Condition: Good Instructions (If sedation given, give patient instructions): Urinary Retention in Men (ED) Is patient prescribed a controlled substance at d/c from ED?: No Referrals: Liz Brewster MD [Primary Care Provider] - 1-2 days Figueroa Dominguez MD [STAFF PHYSICIAN] - 1-2 days
[2023-10-22] MEDS: HYDROcodone/APAP 5-325MG 1 EACH TAB PO STA (20:40)
[2023-10-22 22:13] VITALS: BP 135/69; PULSE 60
== END 2023-10-22 21:58 | disposition home or self-care (01) ==
LOC: EC 18:58
DX: R33.9 Retention of urine, unspecified (principal)
CPT/HCPCS: 51702; 99284

== ENCOUNTER 2023-10-27 09:20 | Day surgery (SDC) | payer BC ==
[~2023-10-27 09:20] MED LIST: ALPRAZolam 0.25 MG TAB PO PRN; ALPRAZolam 0.5 MG TAB PO PRN; ASPIRIN 325 MG TAB PO STA; ATORVASTATIN 80 MG TAB PO STA; HEPARIN SODIUM,PORCINE (1 ML) 2,500 UNIT in SODIUM CHLORIDE 0.9% 250 ML IRRIGATION PRN; HEPARIN SODIUM,PORCINE 10,000 UNIT in SODIUM CHLORIDE 0.9% 1,000 ML IRRIGATION PRN; NITROGLYCERIN SL TABS 0.4 MG TAB SUBLINGUAL PRN
[2023-10-27] MEDS: SODIUM CHLORIDE 0.9% 1,000 ML IV ONE ×2 (09:50→10:36)
[2023-10-27] MEDS ORDERED: LIDOCAINE 1% INJ 10MG/ML (20 ML MDV) ONE (09:56)
[2023-10-27] MEDS ORDERED: VERAPAMIL 2.5 MG/ML 2 ML AMP ONE (09:57)
[2023-10-27] MEDS ORDERED: HEPARIN SODIUM 1,000 UN/ML (10ML VL) ONE (09:57)
[2023-10-27] MEDS ORDERED: fentaNYL (PF) 50 MCG/ML 2 ML AMP ONE (09:58)
[2023-10-27] MEDS: fentaNYL (PF) 50 MCG/1 ML VIAL IVP ONE (10:11)
[2023-10-27] MEDS: MIDAZOLAM 2 MG/2 ML VIAL IVP ONE ×2 (10:11→10:15)
[2023-10-27 10:21] VITALS: TEMP 97.7
[2023-10-27] MEDS: LIDOCAINE 1% INJ 10MG/ML (20 ML MDV) SQ ONE (10:30)
[2023-10-27] MEDS: VERAPAMIL SYRINGE (5 MG/10 ML) INTRAARTER ONE (10:33)
[2023-10-27] MEDS: LIDOCAINE 2% INJ 20 MG/ML SQ ONE (10:41)
[2023-10-27] MEDS ORDERED: SODIUM CHLORIDE 0.9% 1,000 ML IV SCH (11:45)
[2023-10-27] MEDS: IOPAMIDOL-370 100ML BTL INTRATHECA ONE ×2 (11:58)
[2023-10-27 14:00] VITALS: RESP 17
[2023-10-27] MEDS: SODIUM CHLORIDE 0.9% 500 ML 500 ML IV ONE (14:00)
--- NOTE | 2023-10-27 14:47 | P.TEE ---
Date of Procedure: 10/27/23 Description of Procedure(s): Procedure performed: 1. Transesophageal Echocardiogram with color flow doppler, pulsed wave doppler and continuous wave doppler 2. Moderate conscious sedation. Sedation time 16 mins. Indications: Severe Aortic regurgitation and Aortic root dilatation. Consent: I have discussed the risks, benefits and alternative therapies for the above-mentioned procedure. The patient has indicated understanding and acceptance of the risks of the procedure. Signed consent was obtained and was placed in the paper chart. Procedural Steps: Timeout was performed in usual fashion. Patient's heart rate, blood pressure, oxygen saturation and ECG were monitored. Benzocaine was sprayed liberally in the back of the throat. Bite block was placed between the jaw. 3 mg of Versed and 50 mcg of Fentanyl were administered intravenously. After achieving appropriate moderate conscious sedation, PRECIOUS probe was advanced without difficulty and without any immediate complications to the esophagus. PRECIOUS study was performed with color flow doppler, pulsed wave doppler and continuous wave doppler. The probe was then removed. Patient tolerated the procedure well. Patient was transferred to the post procedure area in stable and satisfactory condition. Throughout the procedure patient's heart rate, blood pressure, oxygen saturation and ECG were monitored. Total sedation time 16 mins. Complications: none FINDINGS Left Atrium: Normal Left atrial size. No evidence of mass or thrombus seen Left Atrial Appendage: No evidence of thrombus or mass seen in CATHLEEN Inter atrial septum: Intact inter-atrial septum. Left Ventricle: Severely increase LV diastolic diameter. 7 cm in end diastole when measured in short axis at papillary muscle level. Right Atrium: Normal overall RA size Right Ventricle: Normal global RV size and systolic function Aortic Valve: Trileaflet aortic valve. Leaflet fail to coapt due to annular dilatation. Central, early diastolic, moderate to severe regurgitation. PHT < 400 msec. Mitral Valve: Struturally normal. Mild to moderate mitral regurgitation. Pulmonic Valve: No significant stenosis or regurgitation. Tricuspid Valve: Mild to moderate TR. Ascending aorta, Aortic root and Aortic arch: Aortic root dilated at 5.0 cm. Ascending aorta 5.0 cm. Dilated aortic arch. No evidence of dissection. Descending aorta: Normal size descending aorta. Mild calcific plaques and intimal thickening noticed. CONCLUSION: Moderate to severe aortic regurgitation Severely increased LV diastolic diameter Dilated aortic root and ascending aorta measuring at 5.0 cm. Dilated aortic arch No evidence of aortic dissection Mild to moderate functional MR Harinder Cruz MD, RPVI, FACC Thank you for allowing [facility] to participate in this patient's care. Feel free to reach out in case of any followup questions.
--- NOTE | 2023-10-27 15:02 | P.CARDCATH ---
Date of Procedure: 10/27/23 Description of Procedure: DIAGNOSTIC CORONARY ANGIOGRAPHY and LEFT HEART CATH REPORT PROCEDURES PERFORMED: Left heart catheterization Selective coronary angiography Moderate conscious sedation 59 mins [Ultrasound assisted] Right radial access Ultrasound assisted right common femoral access Angio-Seal closure Aortic root aortogram Right common femoral arteriogram INDICATION: Cardiomyopathy EF 25 to 30%, moderate to severe aortic regurgitation, aortic root dilatation. Patient is a 63-year-old male with PMH of complete heart block s/p PPM, aortic root dilatation measuring at 5.4 cm on TTE, 5 cm on PRECIOUS, 5.[address] scan. He also has cardiomyopathy with a EF of 25 to 30%. He is being planned for a valve replacement and aortic root repair. For this he was scheduled for a heart catheterization procedure. CONSENT: I have explained the procedural steps of above-mentioned procedures in layman's terms to the patient. I discussed the risks (including but not limited to stroke, emergent vascular or cardiac surgery or ), benefits and alternative therapies for the above-mentioned procedure. I discussed the risks of sedation/analgesia and blood product administration (if indicated). The patient has indicated understanding and acceptance of these risks. Conscious Sedation: Patient's ECG, heart rate, blood pressure, pulse oximetry were monitored throughout the duration of procedure under my direct supervision. [2] mg Versed and [50] mg Fentanyl were used for induction of moderate conscious sedation. Total duration of moderate concious sedation 59 mins. PROCEDURE: After explaining the risks, benefits and alternatives of the above mentioned procedures in detail to the patient, informed consent was obtained. Patient was taken to the catheterization lab, prepped and draped in usual sterile fashion using universal precuations. Barbow and sanna test were performed to confirm adequate perfusion to fingers. Ultrasound was used to identify the radial artery. 1% lidocaine was infiltrated over the right radial artery. A 6-Dutch sheath was placed and secured in the right radial artery using modified Seldinger technique. The sheath was flushed and 5 mg verapamil was administered intra-arterially. J tipped wire was advanced under fluoroscopic guidance, but the wire could not be passed beyond the elbow. Under fluoroscopy guidance, a JR4 diagnostic catheter was advanced over the J-wire and the wire was removed. Right radial artery and brachial artery angiogram was performed which showed severe disease in the brachial artery. The wire and the catheter was removed and decision was made to proceed with the right common femoral access using ultrasound. Using ultrasound right common femoral artery was identified. After confirming the bifurcation site, 1% lidocaine was infiltrated over the right common femoral artery. Using modified Seldinger technique the right common femoral arterial access was obtained using a micropuncture needle. The needle was exchanged for a microcatheter. The microcatheter was exchanged for a 6 Dutch slender glide sheath. The sheath was secured in the right common femoral artery and was flushed. Right common femoral arteriogram was performed to confirm the position of the femoral sheath. The J-wire was advanced to the aortic root. Over the J-wire a 6 Dutch JL 5 diagnostic catheter was advanced to engage the left coronary ostium. This catheter was not sufficient to engage the coronary ostium due to dilated aortic root. The JL 5 diagnostic catheter was exchanged for a JL 6 diagnostic catheter. The catheter was manipulated to selectively engage the right coronary ostium. The wire was removed and the catheter was flushed. The left coronary angiogram was performed in different angiographic projections. The catheter was disengaged and was exchanged for a JR 5 diagnostic catheter over the wire. Due to dilated aortic root JR5 diagnostic catheter was found not sufficient to engage the right coronary ostium. This catheter was removed over the wire and a pigtail catheter was advanced to the aortic root. The aortic root aortogram was performed which showed faint right coronary shadow. The pigtail catheter was prolapsed across the aortic valve. LV pressures were obtained and pullback was performed. The pigtail catheter was exchanged over the wire for a AR-2 diagnostic catheter over the wire. AR-2 could not engage the right coronary ostium. This was exchanged for a AL-1 diagnostic catheter. The catheter was manipulated to selectively engage the right coronary ostium. Right coronary angiogram was performed in different angiographic projections. The catheter was disengaged and was removed over the wire. A 6 Dutch Angio-Seal was utilized to obtain patent hemostasis in the right common femoral artery. Patient tolerated the procedure well. Patient was transferred out of the Diesel Engine Engineer in a stable condition in the holding area. HEMODYNAMICS: Aortic Pressure: 115/60 mmHg. LV pressure: 116/1 mmHg. LVEDP 12 mmHg. There was no significant gradient across the aortic valve. SELECTIVE CORONARY ARTERIOGRAPHY: LEFT MAIN: The left main is a large caliber vessel which bifurcates into the LAD and circumflex. Left main appears angiographically normal. LEFT ANTERIOR DESCENDING CORONARY ARTERY: LAD is a large caliber vessel which wraps around to the apex. Proximal LAD has mild luminal irregularities. Mid LAD has moderate diffuse disease in the range of 40 to 50%. Distal LAD appears angiographically normal. LAD gives rise to small diagonal branches appears angiographically normal. LEFT CIRCUMFLEX CORONARY ARTERY: It is co-dominant vessel. Left circumflex large caliber and appears angiographically normal. It gives rise to a large OM branch which appears angiographically normal. RIGHT CORONARY ARTERY: Co-dominant vessel. RCA has a high and anterior takeoff. Proximal RCA has mild luminal irregularities.. Mid RCA has 30 to 40% disease. Distal RCA appears angiographically normal. Distally bifurcates into PDA and PL branch which appears angiographically normal. 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 Moderate to severe chronic aortic regurgitation Dilated aortic root Non-ischemic cardiomyopathy. PLAN: Aggressive risk factor modification per most recent ACC/AHA guidelines. 100 cc fluids for 4 hours. Routine post radial and femoral cath care. Discharge home in 5-6 hours Follow-up in the office in 7 to [address] Cabrera for aortic root and aortic regurgitation evaluation Performing Physician Harinder Cruz MD, FACC, RPVI Thank you for allowing [facility] to participate in this patient's care. Feel free to reach out in case of any followup questions. Please CC this report to Dr Liz Brewster, Dr Harry Cabrera
[2023-10-27 15:11] VITALS: BP 128/79; PULSE 60
== END 2023-10-27 16:46 | disposition home or self-care (01) ==
LOC: CATHCVL 09:20
PROVIDERS: ATTEND Student in an Organized Health Care Education/Training Program
DX: I35.0 Nonrheumatic aortic (valve) stenosis (principal); I42.0 Dilated cardiomyopathy; I44.7 Left bundle-branch block, unspecified; I71.21 Aneurysm of the ascending aorta, without rupture; Z79.82 Long term (current) use of aspirin; Z79.899 Other long term (current) drug therapy
CPT/HCPCS: 93312; 93320; 93325; 93458; 93567; 76937; C1760; C1769 ×2; C1894; J2001 ×2; J2250; Q9967; J3010

== ENCOUNTER 2023-11-16 07:30 | Emergency (ER) | payer BC ==
--- NOTE | 2023-11-16 08:04 | ED ---
Male Urogenital HPI - General Chief complaint: Urogenital Stated complaint: Cath issues Time Seen by Provider: 11/16/23 07:45 Source: patient, RN notes reviewed Mode of arrival: ambulatory Limitations: no limitations - History of Present Illness Initial comments: This is a 63-year-old male who presents to the emergency department for urinary retention. Patient was evaluated here a month ago for urinary retention and had a Maravilla catheter placed. He removed his Maravilla catheter last night, which he states he was instructed to do. He only urinated twice throughout the night and it was a very small amount each time. He is now having increasing pain/pressure in the suprapubic region. He does have an appointment at 11:[address] Dominguez, urology, for a follow-up appointment. Not currently on antibiotics. He is taking Flomax, and states that the dose was just doubled. - Related Data Home Medications Medication Instructions Recorded Confirmed Levothyroxine Sodium [Synthroid] 112 mcg PO DAILY 10/16/21 10/22/23 Aspirin EC [Ecotrin Low Dose] 81 mg PO DAILY 10/22/23 10/27/23 Loratadine [Claritin] 10 mg PO DAILY 10/22/23 10/22/23 Pravastatin Sodium [Pravachol] 20 mg PO HS 10/22/23 10/22/23 Tamulosin 0.4 mg PO HS 10/22/23 10/27/23 allopurinoL [Zyloprim] 100 mg PO DAILY 10/22/23 10/22/23 carvediloL [Coreg] 3.125 mg PO BID 10/22/23 10/22/23 lisinopriL [Zestril] 5 mg PO DAILY 10/22/23 10/22/23 Allergies Allergy/AdvReac Type Severity Reaction Status Date / Time No Known Allergies Allergy Verified 10/27/23 09:47 Review of Systems ROS Statement: Those systems with pertinent positive or pertinent negative responses have been documented in the HPI. ROS Other: All systems not noted in ROS Statement are negative. Past Medical History Past Medical History: Thyroid Disorder History of Any Multi-Drug Resistant Organisms: None Reported Past Surgical History: Hernia Repair, Pacemaker Past Anesthesia/Blood Transfusion Reactions: No Reported Reaction Past Psychological History: No Psychological Hx Reported Smoking Status: Former smoker Past Alcohol Use History: Daily Past Drug Use History: None Reported General Exam Limitations: no limitations General appearance: alert, in distress Head exam: Present: atraumatic, normocephalic, normal inspection Respiratory exam: Present: normal lung sounds bilaterally. Absent: respiratory distress, wheezes, rales, rhonchi, stridor Cardiovascular Exam: Present: regular rate, normal rhythm, normal heart sounds. Absent: systolic murmur, diastolic murmur, rubs, gallop, clicks GI/Abdominal exam: Present: soft, distended, tenderness (suprapubic), normal bowel sounds Neurological exam: Present: alert, oriented X3, CN II-XII intact Psychiatric exam: Present: normal affect, normal mood Skin exam: Present: warm, dry, intact, normal color. Absent: rash Course Vital Signs 11/16/23 11/16/23 07:39 09:44 Temperature 97.5 F L 98.2 F Pulse Rate 66 70 Respiratory 22 18 Rate Blood Pressure 113/75 121/73 O2 Sat by Pulse 97 99 Oximetry Medical Decision Making - Medical Decision Making This is a 63 year old male who presents to the emergency department for urinary retention. Was pt. sent in by a medical professional or institution? @ -No Did you speak to anyone other than the patient for history? @ -No Did you review nursing and triage notes? @ -Yes, and I agree, it is accurate with regards to the patient's symptoms. Were old charts reviewed? @ -No Differential Diagnosis? @ -Differential Urinary Retention: Obstruction, UTI, BPH, neurological issue, this is not meant to be an all- inclusive list. EKG interpreted by me (3pts min.)? @ -Not obtained X-rays interpreted by me (1pt min.)? @ -Not obtained CT interpreted by me (1pt min.)? @ -Not obtained U/S interpreted by me (1pt. min.)? @ -Not obtained What testing was considered but not performed? (CT, X-rays, U/S, labs)? Why? @ -None What meds were considered but not given? Why? @ -None Did you discuss the management of the patient with other professionals? @ -No Did you reconcile home meds? @ -No Was smoking cessation discussed for >3mins.? @ -No Was critical care preformed (if so, how long)? @ -No Were there social determinants of health that impacted care today? How? (Homelessness, low income, unemployed, alcoholism, drug addiction, transportation, low edu. Level, literacy, decrease access to med. care, senior living, rehab)? @ -No Was there de-escalation of care discussed even if they declined? (Discuss DNR or withdrawal of care, Hospice)? @ -No What co-morbidities impacted this encounter? (DM, HTN, Smoking, COPD, CAD, Cancer, CVA, Hep., AIDS, mental health diagnosis, sleep apnea, morbid obesity)? @ -BPH Was patient admitted / discharged? @ -Discharged. The bladder scan was not working while the patient was in the emergency department. However, given his significant discomfort and decreased urine output, he was agreeable to having the Maravilla catheter replaced. Maravilla catheter was inserted and he put out >1500mL of urine. He had improvement in pain afterwards as well. Urinalysis demonstrates blood but was negative for signs of infection. Patient sent home with Maravilla catheter in place and will follow-up with urology as scheduled today. Undiagnosed new problem with uncertain prognosis? @ -None Drug Therapy requiring intensive monitoring for toxicity (Heparin, Nitro, Insulin, Cardizem)? @ -None Were any procedures done? @ -None Diagnosis/symptom? @ -Urinary retention Acute, or Chronic, or Acute on Chronic? @ -Acute Uncomplicated (without systemic symptoms) or Complicated (systemic symptoms)? @ -Uncomplicated Side effects of treatment? @ -None Exacerbation, Progression, or Severe Exacerbation] @ -Not applicable Poses a threat to life or bodily function? @ -No Return precautions reviewed in depth, the patient is instructed to return to the emergency department with any new, worsening, or concerning symptoms. Patient verbalized understanding. This case was discussed in detail with the attending ED physician, Dr. Alex. Presentation, findings, and treatment plan discussed in detail as well. - Lab Data Lab Results 11/16/23 Range/Units 08:14 Urine Color Colorless Urine Appearance Clear (Clear) Urine pH 5.5 (5.0-8.0) Ur Specific Spring 1.005 (1.001-1.035) Urine Protein Negative (Negative) Urine Glucose (UA) Negative (Negative) Urine Ketones Negative (Negative) Urine Blood Moderate H (Negative) Urine Nitrite Negative (Negative) Urine Bilirubin Negative (Negative) Urine Urobilinogen <2.0 (<2.0) mg/dL Ur Leukocyte Esterase Negative (Negative) Urine RBC 2 (0-5) /hpf Urine WBC 1 (0-5) /hpf Disposition Clinical Impression: Urinary retention Disposition: HOME SELF-CARE Instructions (If sedation given, give patient instructions): Urinary Retention in Men (ED), Maravilla Catheter Placement and Care (ED) Additional Instructions: Return to the emergency department with any new, worsening, or concerning symptoms. Follow up with your urologist as scheduled today. Is patient prescribed a controlled substance at d/c from ED?: No Referrals: Liz Brewster MD [Primary Care Provider] - 1-2 days Time of Disposition: 09:59
[2023-11-16] MEDS: KETOROLAC 15 MG/ML 1 ML VIAL IM STA (08:29)
[2023-11-16] MEDS: traMADol 50 MG TAB PO STA (08:30)
[2023-11-16 09:03] LABS: Appearance,Urine Clear (Clear); Bilirubin,Urine Negative (Negative); Blood,Urine Moderate (Negative); Color,Urine Colorless; Glucose,Urine (UA) Negative (Negative); Ketones,Urine Negative (Negative); Leukocyte Esterase,Urine Negative (Negative); Nitrite,Urine Negative (Negative); PH, Urine 5.5 (5.0-8.0); Protein,Urine Negative (Negative); RBC,Urine 2 /hpf (0-5); Specific Gravity,Urine 1.005 (1.001-1.035); Urobilinogen,Urine <2.0 mg/dL (<2.0); WBC,Urine 1 /hpf (0-5)
[2023-11-16 10:28] VITALS: BP 121/73; PULSE 70; RESP 18; TEMP 98.2
== END 2023-11-16 10:21 | disposition home or self-care (01) ==
LOC: EC 07:30
DX: R33.9 Retention of urine, unspecified (principal)
CPT/HCPCS: 81001; 51702; 99284; 96372; J1885

== ENCOUNTER → 2023-12-14 | Outpatient (CLI) | payer BC ==
[2023-12-14 15:13] LABS: BUN/Creat Ratio 15.44 Ratio (12.00-20.00); Blood Urea Nitrogen 13.9 mg/dL (9.0-27.0); Calcium 9.5 mg/dL (8.7-10.3); Carbon Dioxide 22.8 mmol/L (21.6-31.8); Chloride 106 mmol/L (96-109); Glucose 107 mg/dL (70-110); Potassium 4.4 mmol/L (3.5-5.5); Sodium 140 mmol/L (135-145)
[2023-12-14 15:54] LABS: Basophils # (A) 0.04 X 10*3/uL (0.00-0.10); Basophils % (A) 0.8 %; Eosinophils # (A) 0.25 X 10*3/uL (0.04-0.35); Eosinophils % (A) 5.3 %; HCT 44.3 % (39.6-50.0); HGB 14.6 g/dL (13.0-17.0); Lymphocytes # (A) 1.28 X 10*3/uL (0.90-5.00); Lymphocytes % (A) 27.2 %; MCH 29.6 pg (27.0-32.0); MCV 89.9 FL (80.0-97.0); Mean Platelet Volume 10.2 FL (9.5-12.2); Monocytes # (A) 0.45 X 10*3/uL (0.20-1.00); Monocytes % (A) 9.6 %; NRBC Per 100 WBC 0 X 10*3/uL (0.00-0.01); Neutrophils # (A) 2.68 X 10*3/uL (1.80-7.70); Neutrophils % (A) 56.9 %; Platelet Count 232 X 10*3/uL (140-440); RBC 4.93 X 10*6/uL (4.40-5.60); RDW 14.9 % (11.5-14.5); WBC 4.71 X 10*3/uL (4.50-10.00)
== END | disposition home or self-care (01) ==
LOC: LABPAT 08:41
PROVIDERS: ATTEND Urology
DX: Z01.812 Encounter for preprocedural laboratory examination (principal)
CPT/HCPCS: 80048; 85025; 87077; 87086; 87186

== ENCOUNTER → 2024-05-22 | Outpatient (CLI) | payer MEDICARE, BC ==
[2024-05-22 15:11] LABS: HCT 40.8 % (39.6-50.0); HGB 12.5 g/dL (13.0-17.0); MCH 26.1 pg (27.0-32.0); MCHC 30.6 g/dL (32.0-37.0); MCV 85.2 FL (80.0-97.0); Mean Platelet Volume 10.1 FL (9.5-12.2); NRBC Per 100 WBC 0 X 10*3/uL (0.00-0.01); Platelet Count 242 X 10*3/uL (140-440); RBC 4.79 X 10*6/uL (4.40-5.60); RDW 17.6 % (11.5-14.5); WBC 5.46 X 10*3/uL (4.50-10.00)
[2024-05-22 15:32] LABS: Blood Urea Nitrogen 15.5 mg/dL (9.0-27.0); Carbon Dioxide 26.3 mmol/L (21.6-31.8); Chloride 104 mmol/L (96-109); Potassium 5.1 mmol/L (3.5-5.5); Sodium 140 mmol/L (135-145)
== END | disposition home or self-care (01) ==
LOC: LABPAT 10:10
PROVIDERS: ATTEND Internal Medicine Clinical Cardiac Electrophysiology
DX: Z01.818 Encounter for other preprocedural examination
CPT/HCPCS: 80051; 82565; 84520; 85027

== ENCOUNTER 2024-05-25 05:47 | Day surgery (SDC) | payer BC ==
[2024-05-22 12:11] VITALS: BMI 28.5
[2024-05-25] MEDS: IV FLUID CONTINUATION 1,000 ML IV ONE (06:11)
[2024-05-25] MEDS: SODIUM CHLORIDE 0.9% 1,000 ML IV SCH (07:04)
--- NOTE | 2024-05-25 07:58 | P.HPCAR ---
History of Present Illness This is Dr. 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 Amiodarone had been discontinued. Eliquis was continued He is on carvedilol His rhythm strip and twelve-lead EKG show sinus rhythm This was confirmed by device interrogation He feels well ROS: No fever chills or r Confirmed by device interrogationigors, no cough, phlegm or expectoration, no nausea, vomiting or diarrhea, no hematuria, dysuria, no musculoskeletal complaints, no strokes or seizures, no skin lesions. EXAMINATION: Normal heart sounds, normal S1, crisp S2 Normal breath sounds No JVD No lower extremity edema REVIEW OF LABS, ECG & MEDICAL DATA Currently on levothyroxine, aspirin, carvedilol, spironolactone, Pravachol and Eliquis transfer to Physical Exam Vitals: Intake and Output 05/24/24 05/25/24 05/25/24 22:59 06:59 14:59 Intake Total 200 0 Balance 200 0 Intake: IV 200 0 Other: Weight 80.1 kg Past Medical History Past Medical History: Atrial Flutter, Osteoarthritis (OA), Thyroid Disorder Additional Past Medical History / Comment(s): . Sciatica, back pain, pinched nerve in lower back, tingling in left foot. History of Any Multi-Drug Resistant Organisms: None Reported Past Surgical History: Heart Catheterization, Hernia Repair, Pacemaker, Tonsillectomy Additional Past Surgical History / Comment(s): PRECIOUS. LASER PROSTATE SX, AORTIC VALVE REPLACEMENT 03/13/24 AT [facility], Past Anesthesia/Blood Transfusion Reactions: No Reported Reaction Type of Cardiac Device: Permanent Pacemaker Device Placement Date:: 10/17/2020 Smoking Status: Former smoker - Past Family History Father Family Medical History: No Reported History Mother Family Medical History: No Reported History Physical Examination Intake and Output 05/24/24 05/25/24 05/25/24 22:59 06:59 14:59 Intake Total 200 0 Balance 200 0 Intake: IV 200 0 Other: Weight 80.1 kg Results Current Medications Generic Name Dose Route Start Last Admin Trade Name Freq PRN Reason Stop Dose Admin Sodium Chloride 1,000 mls @ 20 mls/hr 05/25/24 06:05 05/25/24 07:04 Saline 0.9% IV 06/24/24 06:04 20 mls/hr .Q24H RANDI Administration Intake and Output 05/24/24 05/25/24 05/25/24 22:59 06:59 14:59 Intake Total 200 0 Balance 200 0 Intake: IV 200 0 Other: Weight 80.1 kg
[2024-05-25 08:02] VITALS: RESP 16
--- NOTE | 2024-05-25 08:03 | P.EPPROC ---
- EP Procedure Note Electrophysiology Procedure Note: Patient admitted for management of sustained atrial flutter post valve surgery and aortic root repair, AVR and tricuspid valve repair Amiodarone had been discontinued Twelve-lead EKG shows sinus mechanism with ventricular pacing The Medtronic dual-chamber pacemaker was interrogated Atrial pacing impedance 532 ohms, RV pacing impedance 399 ohms P waves 2.3 mV Plan Cancel cardioversion for atrial flutter No more amiodarone Continue anticoagulation Follow-up with Dr. Cabrera as previously scheduled Elective atrial flutter ablation, greater than 3 months post open heart surgery
== END 2024-05-25 08:12 | disposition home or self-care (01) ==
LOC: CATHEP 05:47
PROVIDERS: ATTEND Internal Medicine Clinical Cardiac Electrophysiology
CPT/HCPCS: 93005

== ENCOUNTER 2024-12-28 11:58 | Emergency (ER) | payer BC, MEDICARE ==
--- NOTE | 2024-12-28 12:05 | ED ---
General Adult HPI - General Chief complaint: Skin/Abscess/Foreign Body Stated complaint: Bee sting Time Seen by Provider: 12/28/24 12:05 Source: patient, RN notes reviewed Mode of arrival: ambulatory Limitations: no limitations - History of Present Illness Initial comments: Patient is a 64-year-old male presenting with left upper extremity swelling and pain since Wednesday night. He states that he was beekeeping and got stung, he was able to remove the stinger within 2 minutes. He took Benadryl and Tylenol without improvement. Since the sting the swelling has spread through the entire extremity down to his wrist and notes that his warm, painful, and hot. He reports that his PCP sent him here requesting an ultrasound of the extremity. He denies fever/chills, nausea/vomiting, difficulty breathing, chest pain, swelling of the mouth or throat. - Related Data Home Medications Medication Instructions Recorded Confirmed Levothyroxine Sodium [Synthroid] 112 mcg PO DAILY 10/16/21 05/25/24 Aspirin EC [Ecotrin Low Dose] 81 mg PO DAILY 10/22/23 05/25/24 Loratadine [Claritin] 10 mg PO DAILY 10/22/23 05/25/24 Pravastatin Sodium [Pravachol] 20 mg PO HS 10/22/23 05/25/24 allopurinoL [Zyloprim] 100 mg PO DAILY 10/22/23 05/25/24 carvediloL [Coreg] 3.125 mg PO BID 10/22/23 05/25/24 Apixaban [Eliquis] 5 mg PO BID 05/22/24 05/25/24 Ferrous Sulfate [Iron (65 MG 325 mg PO DAILY 05/22/24 05/25/24 Elemental)] Mens Multivitamin Kadeem 1 pack PO BID 05/22/24 Spironolactone 25 mg PO DAILY 05/22/24 05/25/24 Previous Rx's Medication Instructions Recorded Cephalexin [Keflex] 500 mg PO QID 5 Days #20 cap 12/28/24 predniSONE 50 mg PO DAILY #5 tablet 12/28/24 Allergies Allergy/AdvReac Type Severity Reaction Status Date / Time No Known Allergies Allergy Verified 12/28/24 12:04 Review of Systems ROS Statement: Those systems with pertinent positive or pertinent negative responses have been documented in the HPI. ROS Other: All systems not noted in ROS Statement are negative. Past Medical History Past Medical History: Osteoarthritis (OA), Prostate Disorder, Thyroid Disorder Additional Past Medical History / Comment(s): Current tooth infection. Prostate enlarged, has lozano catheter. States having aortic valve replacement this summer. Sciatica, back pain, pinched nerve in lower back, tingling in left foot. History of Any Multi-Drug Resistant Organisms: None Reported Past Surgical History: Heart Catheterization, Hernia Repair, Pacemaker Additional Past Surgical History / Comment(s): PRECIOUS. aortic valve replacement Past Anesthesia/Blood Transfusion Reactions: No Reported Reaction Type of Cardiac Device: Unknown Device Placement Date:: 10/17/2020 Past Psychological History: No Psychological Hx Reported Smoking Status: Former smoker Past Alcohol Use History: Daily - Past Family History Father Family Medical History: No Reported History Mother Family Medical History: No Reported History General Exam Limitations: no limitations General appearance: alert, in no apparent distress Head exam: Present: atraumatic Eye exam: Present: normal appearance Respiratory exam: Present: normal lung sounds bilaterally. Absent: respiratory distress, wheezes, rales, rhonchi, stridor, accessory muscle use Cardiovascular Exam: Present: regular rate, normal rhythm, systolic murmur GI/Abdominal exam: Present: soft, normal bowel sounds. Absent: distended, tenderness Extremities exam: Present: full ROM Left Upper Arm exam: Present: full ROM, tenderness, swelling, erythema. Absent: ecchymosis Elbow exam: Present: full ROM, tenderness, swelling, erythema Forearm Wrist exam: Present: full ROM, tenderness, swelling, erythema Vascular: Present: normal capillary refill, radial pulse Neurological exam: Present: alert, oriented X3 Psychiatric exam: Present: normal affect, normal mood Course Vital Signs 12/28/24 12/28/24 11:59 15:18 Temperature 98.1 F 98.0 F Pulse Rate 66 60 Respiratory 17 18 Rate Blood Pressure 137/87 124/74 O2 Sat by Pulse 98 100 Oximetry Medical Decision Making - Medical Decision Making Was pt. sent in by a medical professional or institution (, PA, FIELD MERCHANDISER, urgent ca re, hospital, or [facility]...) When possible be specific @ -No Did you speak to anyone other than the patient for history (EMS, parent, family, police, friend...)? What history was obtained from this source @ -No Did you review nursing and triage notes (agree or disagree)? Why? @ -I reviewed and agree with nursing and triage notes Were old charts reviewed (outside hosp., previous admission, EMS record, old EKG, old radiological studies, urgent care reports/EKG's, [facility] records)? Report findings @ -No old charts were reviewed Differential Diagnosis? @ -Cellulitis, DVT, superficial vein thrombosis, compartment syndrome. This is not meant to be an all-inclusive list. EKG interpreted by me (3pts min.). @ -As above X-rays interpreted by me (1pt min.). @ -None done CT interpreted by me (1pt min.). @ -None done U/S interpreted by me (1pt. min.). @ -None done What testing was considered but not performed or refused? (CT, X-rays, U/S, labs)? Why? @ -None What meds were considered but not given or refused? Why? @ -None Did you discuss the management of the patient with other professionals (professionals i.e. , PA, FIELD MERCHANDISER, lab, RT, psych nurse, marriage and family social worker, pinion staker, teacher, correctional officer chief, case filler)? Give summary @ -No Was smoking cessation discussed for >3mins.? @ -No Was critical care preformed (if so, how long)? @ -No Were there social determinants of health that impacted care today? How? (Homelessness, low income, unemployed, alcoholism, drug addiction, transportation, low edu. Level, literacy, decrease access to med. care, [facility]ci, rehab)? @ -No Was there de-escalation of care discussed even if they declined (Discuss DNR or withdrawal of care, Hospice)? DNR status @ -No What co-morbidities impacted this encounter? (DM, HTN, Smoking, COPD, CAD, Cancer, CVA, ARF, Chemo, Hep., AIDS, mental health diagnosis, sleep apnea, morbid obesity)? @ -None Was patient admitted / discharged? Hospital course, mention meds given and route, prescriptions, significant lab abnormalities, going to OR and other pertinent info. @ -Patient is a 64-year-old male presenting with left upper extremity swelling and pain since Wednesday night. He saw his PCP who recommend he come to the ER. A venous Doppler duplexed was obtained and negative for DVT or superficial vein thrombosis. Ultrasound negative for DVT or superficial vein thrombosis. Patient discharged home with Keflex and prednisone. He can take Benadryl up to 4 times daily. Discussed return precautions with the patient. Undiagnosed new problem with uncertain prognosis? @ -No Drug Therapy requiring intensive monitoring for toxicity (Heparin, Nitro, Insulin, Cardizem)? @ -No Were any procedures done? @ -No Diagnosis/symptom? @ -Cellulitis, allergic reaction Acute, or Chronic, or Acute on Chronic? @ -Acute Uncomplicated (without systemic symptoms) or Complicated (systemic symptoms)? @ -Uncomplicated Side effects of treatment? @ -No Exacerbation, Progression, or Severe Exacerbation? @ -No Poses a threat to life or bodily function? How? (Chest pain, [place], [place], pneumonia, PE, COPD, DKA, ARF, appy, cholecystitis, CVA, Diverticulitis, Homicidal, Suicidal, threat to staff... and all critical care pts) @ -No Disposition Clinical Impression: Cellulitis, Allergic reaction Disposition: HOME SELF-CARE Condition: Stable Instructions (If sedation given, give patient instructions): Cellulitis (ED) Additional Instructions: Every disease is a spectrum and a small chance still exists that a serious condition could develop, for this reason, please monitor yourself closely for new, changing or worsening symptoms, symptoms that persist beyond 48 hours, fever, inability to tolerate/keep down fluids or your medications, inability to follow up with outpatient providers as instructed and should you experience these symptoms or should you have any further concerns for your wellbeing please return to the ED or call 911 immediately. Your pain can be treated with ibuprofen and acetaminophen. You can take up to 400-600 mg of ibuprofen (Advil, Motrin) 3 times daily (every 8 hours) but can also use lower doses if this relieves your pain. Some people prefer naproxen (Aleve, Naprosyn) which can be taken in doses of 500 mg up to twice a day. Do not take both of these medicines together, and do not combine either with ketorolac (Toradol), meloxicam (Mobic), or indomethacin (Tivorbex). Some people can develop stomach discomfort with higher doses of either ibuprofen or naproxen, if this develops decrease your dose or stop taking it. If you need to take this dose daily for more than a week, please schedule an appointment for re-evaluation with your PCP. Please take these medications with food. You can take up to 1000 mg of acetaminophen (Tylenol) every 6 hours. Be careful as this is included in some medicines like Nyquil, [place], Percocet, Vicodin, STANBACK, Goody's Powders, and Excedrin. You can also use lidocaine patches for topical pain. You can purchase 4% patches over the counter at most drug stores. These can be helpful for pain from your muscles or bones. PLEASE call your primary care physician as soon as possible to arrange / discuss plan for followup appointment. Appointment in the next 1-3 days is strongly encouraged if possible. PLEASE let us know here before you leave if there is anything further we can do to be of any assistance. Take care and feel Better! Prescriptions: Cephalexin [Keflex] 500 mg PO QID 5 Days #20 cap predniSONE 50 mg PO DAILY #5 tablet Is patient prescribed a controlled substance at d/c from ED?: No Referrals: Liz Brewster MD [Primary Care Provider] - 1-2 days Time of Disposition: 14:16
--- NOTE | 2024-12-28 14:06 | US ---
EXAMINATION TYPE: US venous doppler duplex UE LT DATE OF EXAM: 12/28/2024 COMPARISON: NONE CLINICAL INDICATION: Male, 64 years old with history of swelling,pain; bee sting x 2 days ago in Lt tricep, swelling/redness/discomfort lt arm, no hx of dvt, currently on eloquist TECHNIQUE: Grayscale, color Doppler and spectral Doppler imaging of the upper extremity. SIDE PERFORMED: Left VESSELS IMAGED: IJV Subclavian Vein Axilla Vein Brachial Vein(s) Radial Paired Veins Ulnar Paired Veins Cephalic Vein* Basilic Vein* (*superficial vessels) FINDINGS: Left Arm: Appears negative for DVT Radial & Ulnar veins limited Grayscale, color doppler, spectral doppler imaging performed of the deep veins of the left upper extr emity. IMPRESSION: Suboptimal study. No acute deep or superficial venous thrombosis in the left upper extrem ity. [facility], , 12/28/2024 2:03 PM
[2024-12-28 15:31] VITALS: BP 124/74; PULSE 60; RESP 18; TEMP 98
== END 2024-12-28 15:31 | disposition home or self-care (01) ==
LOC: EC 11:58
DX: T63.441A Toxic effect of venom of bees, accidental (unintentional), initial encounter (principal); L03.114 Cellulitis of left upper limb; Z87.891 Personal history of nicotine dependence
CPT/HCPCS: 99283